=== PATIENT | female | born 1930 | race Caucasian/White ===

== ENCOUNTER 2017-05-31 06:24 | Inpatient (IN) | payer MEDICARE ==
[~2017-05-31] VITALS: Ht 162.6 cm; Wt 54.4 kg
--- NOTE | 2017-05-31 06:24 | NUR ---
PT TO ER BB RA FROM HOME. PER EMS CALLED EMS DUE TO ALTERED MENTAL STATUS S/P DRINKING ALCOHOL. UPON TRIAGE PT A/OX1. NO IMMEDIATE SIGNS OF DISTRESS NOTED. PT VITAL SIGNS STABLE. PT REDIRECTABLE. PT TO ER BED, CHANGED INTO GOWN AND CONNECTED TO MONITOR. DR SALAZAR AT [facility] FOR EXAM .
[2017-05-31] MEDS ORDERED: LORAZEPAM INJ 2 MG/ML VIAL ONE ×2 (06:42→07:38)
[2017-05-31] MEDS ORDERED: LORAZEPAM INJ 2 MG/ML VIAL IV ONE ×2 (07:00→08:00)
[2017-05-31] MEDS ORDERED: IV NS 0.9% 1,000 ML BAG IV ONE (07:00)
[2017-05-31 07:08] LABS: BASOPHILS # (AUTO) 0.1 /CMM (0.0-0.2); BASOPHILS % (AUTO) 0.4 % (0.0-2.0); EOSINOPHILS # (AUTO) 0.3 /CMM (0.0-0.7); EOSINOPHILS % (AUTO) 1.8 % (0.0-6.0); HEMATOCRIT 40 % (33-45); HEMOGLOBIN 12.8 g/dL (11.5-14.8); LYMPHOCYTES # (AUTO) 0.8 /CMM (0.8-4.8); LYMPHOCYTES % (AUTO) 4.3 % (20.0-44.0); MEAN CORPUSCULAR HEMOGLOBIN 30 PG (26.0-33.0); MEAN CORPUSCULAR HGB CONC 32 g/dl (31.0-36.0); MEAN CORPUSCULAR VOLUME 92 fL (82-100); MONOCYTES % (AUTO) 5.5 % (2.0-12.0); NEUTROPHILS # (AUTO) 16.2 /CMM (1.8-8.9); RDW COEFFICIENT OF VARIATION 15.6 (11.5-15.0); RED BLOOD CELL COUNT(AUTO) 4.36 MIL/uL (4.0-5.2); WHITE BLOOD COUNT (AUTO) 18.4 K/uL (4.3-11.0)
[2017-05-31 07:14] LABS: PLATELET COUNT (AUTO) 1760 /CMM (150-450)
[2017-05-31 07:17] LABS: CALCIUM, SERUM 10.3 mg/dL (8.5-10.1); CARBON DIOXIDE 24 mmol/L (21-32); CHLORIDE 101 mmol/L (98-107); CREATININE 0.6 mg/dL (0.6-1.3); GLUCOSE 105 mg/dL (74-106); POTASSIUM 3.8 mmol/L (3.5-5.1); SODIUM SERUM 133 mmol/L (136-145); UREA NITROGEN, BLOOD 11 mg/dL (7-18)
[2017-05-31 07:23] LABS: INR 1.08 (0.87-1.13); PROTHROMBIN TIME 11.2 SECS (9.5-12.7)
[2017-05-31 07:25] LABS: TROPONIN I < 0.017 ng/mL (0.00-0.056)
[2017-05-31 07:28] LABS: ALANINE AMINOTRANSFERASE 30 U/L (12-78); ALBUMIN 3.1 g/dL (3.4-5.0); ALCOHOL, BLOOD 177 mg/dL (0-0); ALKALINE PHOSPHATASE 279 U/L (46-116); ASPARTATE AMINOTRANSFERASE 52 U/L (15-37); BILIRUBIN,TOTAL 0.3 mg/dL (0.2-1.0)
[2017-05-31 07:29] LABS: SALICYLATE 0.9 mg/dL (2.8-20.0)
[2017-05-31 07:30] LABS: ACETAMINOPHEN 0 ug/ml (10-30)
[2017-05-31 07:32] LABS: APPEARANCE,URINE CLEAR (CLEAR); BILIRUBIN,URINE NEGATIVE (NEGATIVE); BLOOD, URINE TRACE-INTA Ery/uL (NEGATIVE); COLOR,URINE YELLOW (YELLOW); KETONES,URINE NEGATIVE (NEGATIVE); LEUKOCYTE ESTERASE ,URINE NEGATIVE (NEGATIVE); NITRITE, URINE NEGATIVE (NEGATIVE); PROTEIN,URINE 1+ mg/dl (NEGATIVE); UGLUCOSE NEGATIVE (NEGATIVE); UROBILINOGEN,URINE 0.2 EU/dL (0.2)
[2017-05-31 07:33] LABS: BACTERIA,URINE 1+ /HPF (None Seen); MUCUS,URINE Few /LPF (None Seen); URINE AMORPHOUS URATE Few /HPF (None Seen); WBC,URINE 0-2 /HPF (0-3)
[2017-05-31 07:41] LABS: BAND % (MANUAL) 1 % (0.0-5.0); EOSINOPHILS % (MANUAL) 1 % (0-4); LYMPHOCYTES % (MANUAL) 8 % (16-48); MONOCYTES % (MANUAL) 6 % (0-11.0); NEUTROPHILS % (MANUAL) 84 (42-76)
--- NOTE | 2017-05-31 07:42 | NUR ---
PT IS STILL MOVING A LOT. UNABLE TO TAKE TO RADIOLOGY FOR HEAD CT SCAN. DR SALAZAR AWARE. 0.5 ATIVAN IVP GIVEN PER ERMD VERBAL ORDER.
--- NOTE | 2017-05-31 09:47 | NUR ---
called sandee, conveyor tender eta 1hr
--- NOTE | 2017-05-31 11:35 | NUR ---
REPORT GIVEN TO JERRI COBB FOR SOULEYMANE
[2017-05-31] MEDS ORDERED: HYDROCODONE/APAP 5/325MG 1 EACH TABLET PO PRN (12:30)
[2017-05-31] MEDS ORDERED: MAG HYDROX/AL HYDROX/SIMETH 30 ML UDC PO PRN (12:30)
[2017-05-31] MEDS ORDERED: ACETAMINOPHEN 325 MG TABLET PO PRN (12:30)
[2017-05-31] MEDS ORDERED: Z GUARD REMEDY 2 OZ OINT TP PRN (12:30)
[2017-05-31] MEDS ORDERED: MAGNESIUM HYDROXIDE 30 ML UDC PO PRN (12:30)
[2017-05-31] MEDS ORDERED: ONDANSETRON HCL/PF 4 MG/2 ML VIAL IVP PRN (12:30)
[2017-05-31 14:14] LABS: EOSINOPHILS # (AUTO) 0.4 /CMM (0.0-0.7); EOSINOPHILS % (AUTO) 1.9 % (0.0-6.0); HEMATOCRIT 44 % (33-45); HEMOGLOBIN 13.8 g/dL (11.5-14.8); LYMPHOCYTES # (AUTO) 1.1 /CMM (0.8-4.8); LYMPHOCYTES % (AUTO) 5.2 % (20.0-44.0); MEAN CORPUSCULAR HEMOGLOBIN 29 PG (26.0-33.0); MEAN CORPUSCULAR HGB CONC 31 g/dl (31.0-36.0); MEAN CORPUSCULAR VOLUME 92 fL (82-100); MONOCYTES # (AUTO) 0.7 /CMM (0.1-1.30); MONOCYTES % (AUTO) 3.3 % (2.0-12.0); NEUTROPHILS # (AUTO) 19.7 /CMM (1.8-8.9); NEUTROPHILS % (AUTO) 89.6 % (43.0-81.0); RDW COEFFICIENT OF VARIATION 16.5 (11.5-15.0); RED BLOOD CELL COUNT(AUTO) 4.82 MIL/uL (4.0-5.2)
[2017-05-31 14:18] LABS: LIPASE 127 U/L (73-393)
[2017-05-31 14:44] LABS: PLATELET COUNT (AUTO) 2296 /CMM (150-450)
[2017-05-31 14:56] LABS: BAND % (MANUAL) 5 % (0.0-5.0); LYMPHOCYTES % (MANUAL) 5 % (16-48); MONOCYTES % (MANUAL) 5 % (0-11.0); NEUTROPHILS % (MANUAL) 83 (42-76); REACTIVE LYMPHOCYTES 2 % (0-0)
[2017-05-31 15:00] VITALS: BP 148/90
--- NOTE | 2017-05-31 15:00 | NUR ---
MS RN: ADMITTING NOTE RECEIVED PT TRANSFERRED FROM [facility]. NOT ADMITTED INTO [facility] AND TRANSFERRED TO BE ADMITTED INTO MS. ADMITTED WITH DX OF ALTERED MENTAL STATUS/ UTI. ON 72 HOUR HOLD. DOCUMENTATIONS IN CHART. CAME FROM HOME WITH . GOT REPORT FROM REZA IN [facility]. ONLY BELONGINGS BROUGHT INCLUDE TWO RINGS. ONE YELLOW WITH ONE STONE. ONE WHITE WITH 6 STONES. TAKEN DOWN TO THE SAFE/LOCKED. PT INCONTINENT. A/OX1. CONFUSED AND ALTERED. NON COMBATIVE. COOPERATIVE. UNSTEADY WITH GAIT. L FA IV #22 HL. SITE CLEAR AND PATENT. 1:1 SITTER. BP 148/90, PULSE 96, RR18, TEMPERATURE 97.6, O2 96% ON ROOM AIR. SKIN INTACT. NO PAIN NOTED. NO DISTRESS NOTED. SLEEPING IN BED COMFORTABLY. FALL PRECAUTIONS IN PLACE. BED ALARM ON.
[2017-05-31] MEDS ORDERED: ASPIRIN 325 MG TABLET PO SCH (16:00)
[2017-05-31] MEDS: HEPARIN SODIUM, PORCINE 5000 UNITS/1 ML VIAL SQ SCH (17:40)
[2017-05-31] MEDS: ASPIRIN 325 MG TABLET PO SCH (17:41)
[2017-05-31] MEDS: IV NS 0.9% 1,000 ML IV PRN (17:41)
[2017-05-31] MEDS: CEFTRIAXONE 1 G in IV D5W 50 ML IV SCH (18:05)
--- NOTE | 2017-05-31 18:26 | NUR ---
PER . ALL OTHER BELONGINGS WHERE TAKEN HOME. ONLY BELONGINGS LEFT WHERE 2 RINGS PLACED IN SAFE.
--- NOTE | 2017-05-31 18:29 | NUR ---
MS RN: CLOSING NOTE PT A/OX1. CONFUSED. TRIES TO GET OUT OF BED. 1:1 SITTER IN ROOM. AT BEDSIDE. UES DIAPER. INCONTINENT. UNSTEADY WITH GAIT. ON CONSISTENT CARBOHYDRATE DIET. IV ON L UA #22 RUNNING NS AT 60ML/HR. SITE CLEAR AND PATENT. NO REDNESS NOTED. NO INFILTRATION NOTED. TOO ALL MEDICATIONS ON TIME. NO ADVERSE REACTIONS NOTED. NO PAIN NOTED. NO DISTRESS NOTED. COOPERATIVE AT TIMES. MOSTLY ALTERED. NEEDS TO BE REORIENTED AT ALL TIMES. BED ALARM ON. FALL PRECAUTIONS IN PLACE. RESTING COMFORTABLY IN BED. CALL LIGHT WITHIN REACH.
--- NOTE | 2017-05-31 19:45 | NUR ---
MS RN INITIAL NOTES RECEIVED PT IN BED A/O X1, CONFUSED AND ALERT. ON A 5150 HOLD, DOCUMENTS IN THE CHART. INCONTINENT WITH DIAPER. IV ACCESS IN LFA #22 HL. NO SIGNS OF SOB OR DISTRESS. BREATHING EVENLY AND UNLABORED ON RA. BED IS IN LOW AND LOCKED POSITION, SITTER AT BEDSIDE. WILL CONTINUE TO MONITOR PT.
[2017-05-31 20:00] VITALS: BP 135/80
[2017-06-01 06:47] LABS: CALCIUM, SERUM 9.8 mg/dL (8.5-10.1); CARBON DIOXIDE 25 mmol/L (21-32); CHLORIDE 108 mmol/L (98-107); CREATININE 0.5 mg/dL (0.6-1.3); GLUCOSE 91 mg/dL (74-106); MAGNESIUM 1.5 mg/dL (1.8-2.4); PHOSPHORUS 2.9 mg/dL (2.5-4.9); POTASSIUM 4.2 mmol/L (3.5-5.1); SODIUM SERUM 141 mmol/L (136-145); UREA NITROGEN, BLOOD 11 mg/dL (7-18)
[2017-06-01 06:48] LABS: CHOLESTEROL 144 mg/dL (<200); HDL CHOLESTEROL 56 mg/dL (40-60); LDL 73 mg/dL (0-99); THYROID STIMULATING HORMONE 2.358 uIU/mL (0.358-3.74); TRIGLYCERIDES 63 mg/dL (30-150)
[2017-06-01 06:54] LABS: BASOPHILS % (AUTO) 0.3 % (0.0-2.0); EOSINOPHILS # (AUTO) 0.2 /CMM (0.0-0.7); EOSINOPHILS % (AUTO) 2.1 % (0.0-6.0); HEMATOCRIT 38 % (33-45); HEMOGLOBIN 12.6 g/dL (11.5-14.8); LYMPHOCYTES # (AUTO) 0.8 /CMM (0.8-4.8); LYMPHOCYTES % (AUTO) 6.6 % (20.0-44.0); MEAN CORPUSCULAR HEMOGLOBIN 30 PG (26.0-33.0); MEAN CORPUSCULAR HGB CONC 33 g/dl (31.0-36.0); MEAN CORPUSCULAR VOLUME 91 fL (82-100); MONOCYTES # (AUTO) 1.1 /CMM (0.1-1.30); MONOCYTES % (AUTO) 9.1 % (2.0-12.0); NEUTROPHILS # (AUTO) 9.5 /CMM (1.8-8.9); NEUTROPHILS % (AUTO) 81.9 % (43.0-81.0); RED BLOOD CELL COUNT(AUTO) 4.21 MIL/uL (4.0-5.2); WHITE BLOOD COUNT (AUTO) 11.6 K/uL (4.3-11.0)
[2017-06-01 07:09] LABS: PLATELET COUNT (AUTO) 1518 /CMM (150-450)
--- NOTE | 2017-06-01 07:11 | NUR ---
MS RN NOTES CRITICAL PLT VALUE OF 1518 REPORTED. LEVEL IS TRENDING DOWN
--- NOTE | 2017-06-01 07:27 | NUR ---
MS RN CLOSING NOTES PT IS IN BED RESTING. A/O X1, CONFUSED. NO SIGNS OF SOB OR DISTRESS, BREATHING EVENLY AND UNLABORED ON RA. NO ACUTE CHANGES THROUGHOUT MY SHIFT. SITTER IS AT BEDSIDE. BED IS IN LOW AND LOCKED POSITION, CALL LIGHT WITHIN REACH. WILL ENDORSE TO DAY SHIFT
--- NOTE | 2017-06-01 07:30 | NUR ---
m/s cnc maintenance technician: initial assessment received pt in bed awake, alert to name only with confusion and disorientation to time, place, and situation. pt on 5150. sitter at bedside. reality orientation provided prn. no c/o pain or any discomfort. will continue to monitor.
--- NOTE | 2017-06-01 07:45 | NUR ---
m/s executive consultant: neuro consult seen and examined by dr. echavarria at this time.
[2017-06-01 08:30] VITALS: BP 159/90
[2017-06-01] MEDS: ASPIRIN 325 MG TABLET PO SCH (08:39)
[2017-06-01] MEDS: THIAMINE HCL 100 MG TABLET PO SCH (08:39)
[2017-06-01] MEDS: HEPARIN SODIUM, PORCINE 5000 UNITS/1 ML VIAL SQ SCH ×2 (08:41→20:07)
--- NOTE | 2017-06-01 10:00 | NUR ---
m/s business services tech: notes assisted to bathroom by manager internet. reality orientation provided prn. will continue to monitor.
[2017-06-01] MEDS: Magnesium 1GM/D5W 100ML PREMIX 100 ML IV SCH ×2 (10:22→11:45)
[2017-06-01 10:33] LABS: EOSINOPHILS % (MANUAL) 1 % (0-4); LYMPHOCYTES % (MANUAL) 6 % (16-48); MONOCYTES % (MANUAL) 10 % (0-11.0); NEUTROPHILS % (MANUAL) 83 (42-76)
--- NOTE | 2017-06-01 12:00 | NUR ---
m/s knock out hand: notes lunch served. at bedside. sitter remains at bedside. instructed to call for assistance. will continue to monitor.
--- NOTE | 2017-06-01 16:00 | NUR ---
m/s strategy planning consultant: notes taken for ct abd via w/c accompanied by shahzad and sitter.
--- NOTE | 2017-06-01 16:20 | NUR ---
m/s yard coordinator: notes pt back from ct scan. no c/o pain or any discomfort. sitter remains at bedside. will continue to monitor.
[2017-06-01] MEDS: CEFTRIAXONE 1 G in IV D5W 50 ML IV SCH (16:29)
--- NOTE | 2017-06-01 17:20 | NUR ---
m/s manager of health: notes dinner served. hob elevated. sitter remains at bedside. instructed to call for assistance. will monitor.
--- NOTE | 2017-06-01 18:00 | NUR ---
m/s training and development manager: senior computer specialist consult seen by dr. garnica at this time with no new order.
--- NOTE | 2017-06-01 19:35 | NUR ---
MS RN INITIAL NOTES RECEIVED PT IN BED A/O X1, CONFUSED AND ALERT, ANXIOUS. ON A 5150 HOLD, DOCUMENTS IN THE CHART. INCONTINENT/ CONTINENT WITH DIAPER ABLE TO AMBULATE TO RESTROOM WITH ASSISTANCE. IV ACCESS IN LFA #22 HL. NO SIGNS OF SOB OR DISTRESS. BREATHING EVENLY AND UNLABORED ON RA. BED IS IN LOW AND LOCKED POSITION, SITTER AT BEDSIDE. WILL CONTINUE TO MONITOR PT.
[2017-06-01 20:00] VITALS: BP 159/100
--- NOTE | 2017-06-01 20:23 | NUR ---
Patient resides at home with the located at [address] [place] [id number]. She has hx of dementia and alcohol abuse. Per , patient becomes aggressive and agitated when under the influence of alcohol. Patient is currenty on 5150 hold for grave disability, plan to transfer [facility] when medically stable. Referral to child protective services social worker for eval and possible APS case. Addendum: 06/01/17 at 2023 by BRENDAN DENTON RN Amended: Links added.
[2017-06-01] MEDS: busPIRone 5 MG TABLET PO SCH (21:51)
--- NOTE | 2017-06-01 22:20 | NUR ---
PT BP IS ELEVATED, FLUIDS WERE HELD. WILL CONTINUE TO MONITOR PT.
--- NOTE | 2017-06-02 02:31 | NUR ---
PAGED DR. HODGSON, REGARDING BP ELEVATED BP. AWAITING CALL BACK
--- NOTE | 2017-06-02 02:45 | NUR ---
DR. HODGSON ORDERED METOPROLOL 25 MG BID, FIRST DOSE TO BE GIVEN NOW
[2017-06-02] MEDS ORDERED: METOPROLOL TARTRATE 25 MG TABLET ONE (02:50)
[2017-06-02] MEDS: METOPROLOL TARTRATE 25 MG TABLET PO SCH ×3 (02:53→21:00)
--- NOTE | 2017-06-02 06:30 | NUR ---
SPOKE WITH DR HODGSON REGARDING PT BP. DESPITE METOPROLOL BP IS 179/109. HYDRALAZINE 10 MG IV Q6H PRN WAS ORDERED. PT PLACED ON TELE MONITOR PRIOR TO FIRST DOSE BEING GIVEN.
[2017-06-02] MEDS ORDERED: hydrALAZINE HCL IV 20 MG VIAL ONE (06:36)
[2017-06-02] MEDS ORDERED: hydrALAZINE HCL IV 20 MG VIAL IV PRN (07:00)
--- NOTE | 2017-06-02 07:30 | NUR ---
MS JERRI AM NOTES RECEIVED PT IN BED A/O X1, CONFUSED AND ALERT, ANXIOUS. ON A 5150 HOLD EXP 06/03/17, SITTER AT BEDSIDE, NOT IN ANY DISTRESS, DENIES ANY PAIN OR DISCOMFORT, IV ACCESS IN LFA #22 HL, FLUSHES WELL, SITE CLEAR, INCONTINENT/ CONTINENT WITH DIAPER ABLE TO AMBULATE TO RESTROOM WITH ASSISTANCE. BED IS IN LOW AND LOCKED POSITION, CALL LIGHT WITHIN REACH, WILL CONTINUE TO MONITOR PT.
--- NOTE | 2017-06-02 07:33 | NUR ---
MS RN CLOSING NOTES PT IS IN BED RESTING, CONFUSED BUT OTHERWISE PLEASANT. NO SIGNS OF SOB OR DISTRESS. BREATHING EVENLY AND UNLABORED ON RA. SITTER 1:1 AT BEDSIDE. ON TELE MONITOR FOR HYDRALAZINE. DENIES PAIN. BED IS IN LOW AND LOCKED POSITION. WILL ENDORSE TO DAY SHIFT
[2017-06-02 07:38] LABS: BASOPHILS % (AUTO) 0.2 % (0.0-2.0); EOSINOPHILS # (AUTO) 0.3 /CMM (0.0-0.7); EOSINOPHILS % (AUTO) 2.9 % (0.0-6.0); HEMATOCRIT 41 % (33-45); HEMOGLOBIN 13.1 g/dL (11.5-14.8); LYMPHOCYTES # (AUTO) 0.7 /CMM (0.8-4.8); LYMPHOCYTES % (AUTO) 5.8 % (20.0-44.0); MEAN CORPUSCULAR HEMOGLOBIN 29 PG (26.0-33.0); MEAN CORPUSCULAR HGB CONC 32 g/dl (31.0-36.0); MEAN CORPUSCULAR VOLUME 92 fL (82-100); MONOCYTES # (AUTO) 0.9 /CMM (0.1-1.30); MONOCYTES % (AUTO) 7.8 % (2.0-12.0); NEUTROPHILS # (AUTO) 9.5 /CMM (1.8-8.9); NEUTROPHILS % (AUTO) 83.3 % (43.0-81.0); RDW COEFFICIENT OF VARIATION 15.9 (11.5-15.0); RED BLOOD CELL COUNT(AUTO) 4.48 MIL/uL (4.0-5.2); WHITE BLOOD COUNT (AUTO) 11.4 K/uL (4.3-11.0)
[2017-06-02 07:44] LABS: PLATELET COUNT (AUTO) 1655 /CMM (150-450)
--- NOTE | 2017-06-02 07:45 | NUR ---
MS RN NOTES LAB REPORT: CRITICAL VALUE HIGH PLATELET 1,655. INFORMED.
[2017-06-02 08:00] VITALS: BP 147/86
[2017-06-02] MEDS: busPIRone 5 MG TABLET PO SCH ×2 (09:07→21:00)
[2017-06-02] MEDS: THIAMINE HCL 100 MG TABLET PO SCH (09:07)
[2017-06-02] MEDS: ASPIRIN 325 MG TABLET PO SCH (09:07)
[2017-06-02] MEDS: HEPARIN SODIUM, PORCINE 5000 UNITS/1 ML VIAL SQ SCH ×2 (09:09→21:01)
--- NOTE | 2017-06-02 09:30 | NUR ---
MS RN NOTES DUE MEDS GIVEN.
--- NOTE | 2017-06-02 10:58 | NUR ---
Social service consult requested by case checker Missy for grave disability. Pt. is a 86 year old female who was admitted to [facility] for [facility] disability. GLORIA met with pt. and her Trevon bedside. Pt. is alert and oriented x1. Pt. has dementia and is on a 5150 hold for grave disability. Pt. has a sitter bedside. Pt lives with her Trevon in a house located at [address] [place] [address] in [place]. Pt's emergency contact is her Trevon . Pt. and her have a cat named Veruta. Pt. needs assistance withi her ADL's and walks with an unsteady gait. Pt's appeared disheveled and smelled of urine. According to charge master coordinator Bahman, pt. did not eat her food so her ate it. GLORIA inquired with how do they get their meals at home. Trevon informed SW that they get it from the restaurants. Pt. and her do not drive. Trevon informed SW that their neighbors take them to their doctor appointments. Pt. receives $2000 in SSI and pt's receives $600 in SSI per month. Both and pt. have no other family supports. GLORIA is concerned about both pt. and her living conditions since they both appear to be gravely disabled. GLORIA filed APS report for grave disability (APS Intake ID [id number]) so that APS can follow up with pt. and her at home and assess the living situation.
[2017-06-02] MEDS: Magnesium 1GM/D5W 100ML PREMIX 100 ML IV SCH ×2 (11:24→12:27)
--- NOTE | 2017-06-02 11:24 | NUR ---
MS RN NOTES MAGNESIUM BAG #1 STARTED.
[2017-06-02 12:07] LABS: LYMPHOCYTES % (MANUAL) 5 % (16-48); MONOCYTES % (MANUAL) 6 % (0-11.0); NEUTROPHILS % (MANUAL) 85 (42-76)
[2017-06-02 12:08] LABS: EOSINOPHILS % (MANUAL) 4 % (0-4)
[2017-06-02] MEDS: QUETIAPINE FUMARATE 25 MG TABLET PO SCH ×2 (12:27→16:38)
--- NOTE | 2017-06-02 12:27 | NUR ---
MS RN NOTES MAGNESIUM BAG #2 STARTED.
[2017-06-02] MEDS: DOCUSATE SODIUM 100 MG CAPSULE PO SCH (16:38)
[2017-06-02] MEDS: IV NS 0.9% 1,000 ML IV PRN (16:38)
[2017-06-02] MEDS: CEFTRIAXONE 1 G in IV D5W 50 ML IV SCH (16:39)
--- NOTE | 2017-06-02 16:39 | NUR ---
MS RN NOTES STARTED ROCEPHIN IV.
[2017-06-02 16:40] VITALS: BP 135/82
[2017-06-02 18:00] VITALS: BP 135/82
[2017-06-02] MEDS: HYDROXYUREA 500 MG CAPSULE PO SCH (18:10)
[2017-06-02] MEDS: ALLOPURINOL 100 MG TABLET PO SCH (18:11)
--- NOTE | 2017-06-02 18:27 | NUR ---
MS RN CLOSING NOTES PT IS IN BED RESTING, CONFUSED, PULLED OUT IV EARLIER, RE STARTED, AT BEDSIDE, NO SIGNS OF SOB OR DISTRESS. BREATHING EVENLY AND UNLABORED ON RA. SITTER 1:1 AT BEDSIDE. DENIES PAIN. BED IS IN LOW AND LOCKED POSITION. ALL NEEDS MET, PM CARE DONE, NO OTHER SIGNIFICANT CHANGE IN CONDITION. CALL LIGHT WITHIN REACH, WILL ENDORSE TO DAY SHIFT
[2017-06-02 20:00] VITALS: BP 122/74
--- NOTE | 2017-06-02 20:00 | NUR ---
MS SPECIAL OFFICER AUTOMAT INITIAL NOTES RECEIVED PT IN BED SLEEPING AT THIS TIME, NO SIGNS OF ANY ACUTE DISTRESS NOTED, BREATHING EVEN AND NON-LABORED, IVF STILL INFUSING AT 60ML/HR ON HER LEFT FOREARM PATENT AND INTACT. KEPT HER WARM AND COMFORTABLE AT ALL TIMES. SITTER AT THE BEDSIDE BECAUSE PT ON 5150 HOLD STARTED TODAY TO 06/16 2017. WILL CONTINUE TO MONITOR.
[2017-06-03 03:51] VITALS: BP 122/74
[2017-06-03 07:03] LABS: BASOPHILS % (AUTO) 0.1 % (0.0-2.0); EOSINOPHILS # (AUTO) 0.2 /CMM (0.0-0.7); EOSINOPHILS % (AUTO) 2.4 % (0.0-6.0); HEMATOCRIT 38 % (33-45); HEMOGLOBIN 12.4 g/dL (11.5-14.8); LYMPHOCYTES # (AUTO) 0.6 /CMM (0.8-4.8); LYMPHOCYTES % (AUTO) 6.7 % (20.0-44.0); MEAN CORPUSCULAR HEMOGLOBIN 29 PG (26.0-33.0); MEAN CORPUSCULAR HGB CONC 33 g/dl (31.0-36.0); MEAN CORPUSCULAR VOLUME 90 fL (82-100); MONOCYTES # (AUTO) 0.9 /CMM (0.1-1.30); MONOCYTES % (AUTO) 9.6 % (2.0-12.0); NEUTROPHILS # (AUTO) 7.5 /CMM (1.8-8.9); NEUTROPHILS % (AUTO) 81.2 % (43.0-81.0); RDW COEFFICIENT OF VARIATION 16.2 (11.5-15.0); WHITE BLOOD COUNT (AUTO) 9.3 K/uL (4.3-11.0)
[2017-06-03 07:18] LABS: CALCIUM, SERUM 10.1 mg/dL (8.5-10.1); CARBON DIOXIDE 25 mmol/L (21-32); CHLORIDE 108 mmol/L (98-107); CREATININE 0.7 mg/dL (0.6-1.3); GLUCOSE 106 mg/dL (74-106); MAGNESIUM 1.8 mg/dL (1.8-2.4); POTASSIUM 3.9 mmol/L (3.5-5.1); SODIUM SERUM 140 mmol/L (136-145); UREA NITROGEN, BLOOD 9 mg/dL (7-18)
[2017-06-03 07:22] LABS: PLATELET COUNT (AUTO) 1527 /CMM (150-450)
--- NOTE | 2017-06-03 07:35 | NUR ---
MS RN INITIAL NOTES RECEIVED PT IN BED AWAKE, ALERT,VERBALLY RESPONSIVE.ON ROOM AIR, NO SOB ,NO APPARENT DISTRESS NOTED.IV SITE LFA INTACT, PATENT.DENIES ANY PAIN OR DISCOMFORT AT THIS TIME. CALL LIGHT WITHIN REACH, BED IN LOWEST POSITION. WILL CONTINUE TO MONITOR ACCORDINGLY
--- NOTE | 2017-06-03 07:39 | NUR ---
SLOT MACHINE REPAIRER/CLOSING NOTES PT AWAKE AND ALERT AT THIS TIME, CONFUSION AT TIMES NEEDS RE-ORIENTATION AT TIMES. DENIES ANY PAIN OR ANY DISCOMFORT. STABLE NUVIA THE NIGHT AND SLEPT WELL. ALL DUE MEDS GIVEN . NO AGITATION NOTED. KEPT HER WARM AND COMFORTABLE AT ALL TIMES. SITTER AT THE BEDSIDE FOR SAFETY. HEPLOCK AT THIS TIME. ENDORSE TO AM NURSE FOR CONTINUITY OF CARE.
[2017-06-03 08:00] VITALS: BP 163/85
--- NOTE | 2017-06-03 08:00 | NUR ---
MS RN RECEIVED ON BED, AWAKE,FORGETFUL, NOT IN ANY FORM OF DISTRESS, RESPIRATIONS EVEN AND UNLABORED,NO SOB NOTED, LUNGS ARE CLEAR,ABDOMEN SOFT,POSITIVE BOWEL SOUNDS, DENIES PAIN AT THIS TIME, WILL MONITOR PATIENT'S CONDITION.
--- NOTE | 2017-06-03 09:00 | NUR ---
MS GUTHRIE BREAKFAST SERVED,DUE MEDS GIVEN,TOLERATED WELL.
[2017-06-03] MEDS: ALLOPURINOL 100 MG TABLET PO SCH (09:08)
[2017-06-03] MEDS: HYDROXYUREA 500 MG CAPSULE PO SCH (09:08)
[2017-06-03] MEDS: DOCUSATE SODIUM 100 MG CAPSULE PO SCH ×2 (09:08→17:23)
[2017-06-03] MEDS: THIAMINE HCL 100 MG TABLET PO SCH (09:09)
[2017-06-03] MEDS: busPIRone 5 MG TABLET PO SCH (09:09)
[2017-06-03] MEDS: QUETIAPINE FUMARATE 25 MG TABLET PO SCH ×2 (09:09→17:23)
[2017-06-03] MEDS: ASPIRIN 325 MG TABLET PO SCH (09:09)
[2017-06-03] MEDS: METOPROLOL TARTRATE 25 MG TABLET PO SCH (09:11)
[2017-06-03] MEDS: HEPARIN SODIUM, PORCINE 5000 UNITS/1 ML VIAL SQ SCH (09:13)
[2017-06-03 09:58] LABS: EOSINOPHILS % (MANUAL) 6 % (0-4); LYMPHOCYTES % (MANUAL) 4 % (16-48); MONOCYTES % (MANUAL) 7 % (0-11.0); NEUTROPHILS % (MANUAL) 83 (42-76)
[2017-06-03 10:00] VITALS: BP 148/80
[2017-06-03 16:00] VITALS: BP_SYST 127; BP_SYST 177; BP_DIAS 67; BP_DIAS 82
[2017-06-03] MEDS: CEFTRIAXONE 1 G in IV D5W 50 ML IV SCH (17:24)
--- NOTE | 2017-06-03 18:32 | NUR ---
MS RN PATIENT WILL BE GOING TO [facility] WHEN ROOM IS AVAILABLE, JOSETTE GUTHRIE WILL CALL.
== END 2017-06-03 19:54 | DRG 871 ==
LOC: ER 06:25 → GPS 11:33 → MED 14:30
PROVIDERS: ADMIT Nurse Practitioner Acute Care; ATTEND Nurse Practitioner Acute Care
DX: A41.9 Sepsis, unspecified organism (principal); G93.41 Metabolic encephalopathy; J69.0 Pneumonitis due to inhalation of food and vomit; E87.2 Acidosis; K70.10 Alcoholic hepatitis without ascites; E83.42 Hypomagnesemia; R13.10 Dysphagia, unspecified; J98.11 Atelectasis; F10.129 Alcohol abuse with intoxication, unspecified; Y90.6 Blood alcohol level of 120-199 mg/100 ml; D47.3 Essential (hemorrhagic) thrombocythemia; I70.0 Atherosclerosis of aorta; F29 Unspecified psychosis not due to a substance or known physiological condition; F03.90 Unspecified dementia, unspecified severity, without behavioral disturbance, psychotic disturbance, mood disturbance, and anxiety; F41.9 Anxiety disorder, unspecified; I10 Essential (primary) hypertension; K59.00 Constipation, unspecified; R33.9 Retention of urine, unspecified; F10.150 Alcohol abuse with alcohol-induced psychotic disorder with delusions; F01.50 Vascular dementia, unspecified severity, without behavioral disturbance, psychotic disturbance, mood disturbance, and anxiety; N28.1 Cyst of kidney, acquired; K80.20 Calculus of gallbladder without cholecystitis without obstruction
CPT/HCPCS: 36415; 70450-TC; 71010-TC; 80048-TC; 80061-TC; 80076-TC; 80305; 81000-TC; 82140-TC; 83605-TC; 83690-TC; 83735-TC; 83891; 83900; 83909; 83912; 84100-TC; 84425; 84443-TC; 84484-TC; 84550-TC; 85025-TC; 85730-TC; 87040-TC; 87081-TC; A4606; G0480; J0360; J0696; J1644; J2060; J3475; J7030; J7060; Z7610

== ENCOUNTER 2017-06-03 20:05 | Inpatient (IN) | payer MEDICARE ==
[~2017-06-03] VITALS: Ht 162.6 cm; Wt 54.4 kg
--- NOTE | 2017-06-03 19:45 | NUR ---
RECEIVED A REPORT FROM PARUL FROM [facility]. PER REPORT, PATIENT IS MEDICALLY CLEAR BY PETTY OSUNA. PER REPORT NO HOME MEDS BUT ALL MEDICATIONS WERE DISCONTINUED FROM UPSTAIRS.
[2017-06-03] MEDS ORDERED: TEMAZEPAM 7.5 MG CAPSULE PO PRN (20:30)
[2017-06-03] MEDS ORDERED: MAG HYDROX/AL HYDROX/SIMETH 30 ML UDC PO PRN (20:30)
[2017-06-03] MEDS ORDERED: MAGNESIUM HYDROXIDE 30 ML UDC PO PRN (20:30)
[2017-06-03] MEDS ORDERED: ACETAMINOPHEN 325 MG TABLET PO PRN (20:30)
[2017-06-03] MEDS ORDERED: LORAZEPAM 0.5 MG TABLET PO PRN (20:30)
--- NOTE | 2017-06-03 20:30 | NUR ---
ADMITTED AN 86 Y/O WHITE FEMALE, ON 5250 HOLD GD. BASED ON HOLD PATIENT IS STILL PSYCHOSIS, AGITATED, MOOD SWINGS, CONFUSED AND UNABLE TO CARE FOR SELF. PATIENT ADMITTING DX. PSYCHOSIS AND MEDICAL DX. ALCOHOL INTOXIFICATION. UPON FACE TO FACE EVALUATION, PATIENT APPEARED CONFUSED, DISORIENTED, DISORGANIZED, TALKING TO SELF, RESPONDING TO INTERNAL STIMULI AND UNABLE TO CARE FOR SELF. NO SOB, NO ACUTE DISTRESS, BREATHING EVEN AND UNLABORED, NO S/S OF PAIN AND DISCOMFORT, SEVERE LOWER EXTREMITIES WEAKNESS AND UNSTEADY GAIT. PATIENT UNABLE TO SIGN PAPERWORKS, ALL BELONGINGS AND CONTRABAND INSPECTED AND PLACED TO SAFE. NOTIFIED DR. BARROSO WITH ORDER OF 1:1. NOTIFIED INTERACTIVE MEDIA MARKETING DIRECTOR. PATIENT SEEN FROM TIME TO TIME. SAFETY PRECAUTIONS OBSERVED. ATTEMPTED TO NOTIFY BUT THE NUMBER GIVEN IS DISCONNECTED. WILL CONTINUE TO FOLLOW UP. KEPT CLEAN, DRY AND COMFORTABLE, WILL CONTINUE TO MONITOR [id number] FOR SAFETY
[2017-06-04 01:00] VITALS: BP 130/70
[2017-06-04 07:49] LABS: CHOLESTEROL 144 mg/dL (<200); HDL CHOLESTEROL 61 mg/dL (40-60); LDL 68 mg/dL (0-99); TRIGLYCERIDES 57 mg/dL (30-150)
[2017-06-04 08:00] VITALS: BP 114/69
[2017-06-04] MEDS: LEVOFLOXACIN (500MG) 500 MG TABLET PO SCH (08:48)
[2017-06-04] MEDS: ASPIRIN 81 MG TAB.CHEW PO SCH (08:49)
[2017-06-04] MEDS: ALLOPURINOL 100 MG TABLET PO SCH (08:49)
[2017-06-04] MEDS: HYDROXYUREA 500 MG CAPSULE PO SCH (08:52)
--- NOTE | 2017-06-04 09:51 | NUR ---
DR. BARROSO CAME AND ORDERED 1:1 FOR PT. IS HIGH FALL RISK AND CLIMBING ON BED.
[2017-06-04] MEDS: QUETIAPINE FUMARATE 25 MG TABLET PO SCH ×2 (11:30→17:00)
[2017-06-04] MEDS ORDERED: QUETIAPINE FUMARATE 25 MG TABLET PO SCH (12:30)
--- NOTE | 2017-06-04 13:11 | NUR ---
RN-NOTES DR. BARROSO ORDERED EKG FOR THE PATIENT,NOTED AND CARRIED OUT.
--- NOTE | 2017-06-04 15:01 | NUR ---
DR. BARROSO MADE AWARE OF THE EKG RESULT AND NO NEW ORDER.
[2017-06-04 15:46] VITALS: BP 150/90
[2017-06-04] MEDS: busPIRone 5 MG TABLET PO SCH (17:20)
[2017-06-04 20:00] VITALS: BP 136/78
[2017-06-05 08:07] VITALS: BP 164/96
[2017-06-05 08:14] LABS: CALCIUM, SERUM 10.2 mg/dL (8.5-10.1); CARBON DIOXIDE 25 mmol/L (21-32); CHLORIDE 106 mmol/L (98-107); CREATININE 0.5 mg/dL (0.6-1.3); GLUCOSE 91 mg/dL (74-106); MAGNESIUM 1.6 mg/dL (1.8-2.4); PHOSPHORUS 3.1 mg/dL (2.5-4.9); POTASSIUM 4.2 mmol/L (3.5-5.1); SODIUM SERUM 140 mmol/L (136-145); UREA NITROGEN, BLOOD 12 mg/dL (7-18)
[2017-06-05 08:25] LABS: BASOPHILS % (AUTO) 0.1 % (0.0-2.0); EOSINOPHILS # (AUTO) 0.1 /CMM (0.0-0.7); EOSINOPHILS % (AUTO) 1.3 % (0.0-6.0); HEMATOCRIT 37 % (33-45); HEMOGLOBIN 11.8 g/dL (11.5-14.8); LYMPHOCYTES # (AUTO) 0.4 /CMM (0.8-4.8); LYMPHOCYTES % (AUTO) 4.8 % (20.0-44.0); MEAN CORPUSCULAR HEMOGLOBIN 30 PG (26.0-33.0); MEAN CORPUSCULAR HGB CONC 32 g/dl (31.0-36.0); MEAN CORPUSCULAR VOLUME 93 fL (82-100); MONOCYTES # (AUTO) 0.3 /CMM (0.1-1.30); MONOCYTES % (AUTO) 3.6 % (2.0-12.0); NEUTROPHILS # (AUTO) 7.3 /CMM (1.8-8.9); NEUTROPHILS % (AUTO) 90.2 % (43.0-81.0); RDW COEFFICIENT OF VARIATION 16.5 (11.5-15.0); RED BLOOD CELL COUNT(AUTO) 3.99 MIL/uL (4.0-5.2); WHITE BLOOD COUNT (AUTO) 8.1 K/uL (4.3-11.0)
[2017-06-05 08:30] LABS: PLATELET COUNT (AUTO) 1284 /CMM (150-450)
[2017-06-05] MEDS: LEVOFLOXACIN (500MG) 500 MG TABLET PO SCH (09:27)
[2017-06-05] MEDS: ASPIRIN 81 MG TAB.CHEW PO SCH (09:27)
[2017-06-05] MEDS: ALLOPURINOL 100 MG TABLET PO SCH (09:27)
[2017-06-05] MEDS: HYDROXYUREA 500 MG CAPSULE PO SCH (09:27)
[2017-06-05] MEDS: busPIRone 5 MG TABLET PO SCH ×2 (09:27→17:23)
--- NOTE | 2017-06-05 11:30 | NUR ---
RN-CO: Patient was seen and examined by Dr Posadas.
[2017-06-05] MEDS ORDERED: MAGNESIUM OXIDE 400 MG TABLET PO ONE (12:00)
[2017-06-05] MEDS: QUETIAPINE FUMARATE 25 MG TABLET PO SCH ×3 (12:20→17:24)
[2017-06-05 13:09] LABS: EOSINOPHILS % (MANUAL) 1 % (0-4); LYMPHOCYTES % (MANUAL) 9 % (16-48); MONOCYTES % (MANUAL) 3 % (0-11.0); NEUTROPHILS % (MANUAL) 87 (42-76)
--- NOTE | 2017-06-05 15:07 | NUR ---
Initial Discharge Note: Patient lives with her in a house at [address] [place] [address] and wishes to return upon discharge. GLORIA spoke with pt's Trevon Luke [phone] / [phone], in person during visiting hours. Trevon stated that he would like home-health services arranged for patient. Please note that pt's also appeared to be unkempt. GLORIA will consult with MD and will work to arrange safe and proper discharge for patient. Please note that there is an open APS report, filed by GLORIA Bajwa while patient was on medical floor being transfer to [facility]. (APS Intake ID [id number])
[2017-06-05 16:00] VITALS: BP 120/65
[2017-06-05 20:11] VITALS: BP 123/84
[2017-06-06 07:30] LABS: BASOPHILS % (AUTO) 0.5 % (0.0-2.0); EOSINOPHILS # (AUTO) 0.2 /CMM (0.0-0.7); EOSINOPHILS % (AUTO) 3.2 % (0.0-6.0); HEMATOCRIT 37 % (33-45); HEMOGLOBIN 11.6 g/dL (11.5-14.8); LYMPHOCYTES # (AUTO) 0.5 /CMM (0.8-4.8); LYMPHOCYTES % (AUTO) 7.2 % (20.0-44.0); MEAN CORPUSCULAR HEMOGLOBIN 29 PG (26.0-33.0); MEAN CORPUSCULAR HGB CONC 31 g/dl (31.0-36.0); MEAN CORPUSCULAR VOLUME 93 fL (82-100); MONOCYTES # (AUTO) 0.2 /CMM (0.1-1.30); MONOCYTES % (AUTO) 3.3 % (2.0-12.0); NEUTROPHILS # (AUTO) 6.1 /CMM (1.8-8.9); NEUTROPHILS % (AUTO) 85.8 % (43.0-81.0); RDW COEFFICIENT OF VARIATION 16.5 (11.5-15.0); RED BLOOD CELL COUNT(AUTO) 4.02 MIL/uL (4.0-5.2); WHITE BLOOD COUNT (AUTO) 7.1 K/uL (4.3-11.0)
[2017-06-06 07:31] LABS: PLATELET COUNT (AUTO) 1458 /CMM (150-450); URIC ACID 3.1 mg/dL (2.6-7.2)
[2017-06-06 07:36] LABS: ALANINE AMINOTRANSFERASE 28 U/L (12-78); ALBUMIN 2.7 g/dL (3.4-5.0); ALKALINE PHOSPHATASE 210 U/L (46-116); ASPARTATE AMINOTRANSFERASE 37 U/L (15-37); BILIRUBIN,TOTAL 0.6 mg/dL (0.2-1.0); CALCIUM, SERUM 10.2 mg/dL (8.5-10.1); CARBON DIOXIDE 26 mmol/L (21-32); CHLORIDE 106 mmol/L (98-107); CREATININE 0.6 mg/dL (0.6-1.3); GLUCOSE 87 mg/dL (74-106); POTASSIUM 4.3 mmol/L (3.5-5.1); SODIUM SERUM 140 mmol/L (136-145); TOTAL PROTEIN, SERUM 6.2 g/dL (6.4-8.2); UREA NITROGEN, BLOOD 15 mg/dL (7-18)
[2017-06-06 08:00] VITALS: BP 143/81
[2017-06-06] MEDS: busPIRone 5 MG TABLET PO SCH ×2 (08:27→16:34)
[2017-06-06] MEDS: ASPIRIN 81 MG TAB.CHEW PO SCH (08:27)
[2017-06-06] MEDS: ALLOPURINOL 100 MG TABLET PO SCH (08:27)
[2017-06-06] MEDS: QUETIAPINE FUMARATE 25 MG TABLET PO SCH ×2 (08:27→16:34)
[2017-06-06] MEDS: HYDROXYUREA 500 MG CAPSULE PO SCH (08:27)
[2017-06-06] MEDS: LEVOFLOXACIN (500MG) 500 MG TABLET PO SCH (08:27)
[2017-06-06 10:32] LABS: BAND % (MANUAL) 1 % (0.0-5.0); EOSINOPHILS % (MANUAL) 3 % (0-4); LYMPHOCYTES % (MANUAL) 9 % (16-48); MONOCYTES % (MANUAL) 4 % (0-11.0); NEUTROPHILS % (MANUAL) 83 (42-76)
[2017-06-06 16:00] VITALS: BP 115/82
[2017-06-06 20:00] VITALS: BP 150/78
--- NOTE | 2017-06-07 06:53 | NUR ---
ms/rn notes Patient in bed, No significant changes noted. With 1:1 sitter at bedside.Denies pain or discomfort the entire shift. Remain in stable condition. All needs attended. will continue plan of care.
[2017-06-07] MEDS: ASPIRIN 81 MG TAB.CHEW PO SCH (08:32)
[2017-06-07] MEDS: LEVOFLOXACIN (500MG) 500 MG TABLET PO SCH (08:32)
[2017-06-07] MEDS: ALLOPURINOL 100 MG TABLET PO SCH (08:32)
[2017-06-07] MEDS: busPIRone 5 MG TABLET PO SCH ×2 (08:32→16:07)
[2017-06-07] MEDS: QUETIAPINE FUMARATE 25 MG TABLET PO SCH ×2 (08:32→16:07)
[2017-06-07] MEDS: HYDROXYUREA 500 MG CAPSULE PO SCH (08:37)
[2017-06-07 08:45] VITALS: BP 152/90
[2017-06-07 16:37] VITALS: BP 115/72
--- NOTE | 2017-06-07 17:30 | NUR ---
PER MD RILEY ORDER TO GET CONSENT FROM NIECE FOR POSSIBLE BONE MARROW BIOPSY. NIECE CONSENT WANTED BECAUSE SPEAKING WITH AND PATIENT. MD RILEY FELT THAT THEY DID NOT UNDERSTAND PROCEDURE WELL. NIECE DID NOT VISIT FAMILY TODAY. NO NUMBER IN FILE. FOLLOW UP.
[2017-06-07 20:46] VITALS: BP 126/84
[2017-06-08 06:26] LABS: EOSINOPHILS # (AUTO) 0.1 /CMM (0.0-0.7); HEMATOCRIT 37 % (33-45); HEMOGLOBIN 11.7 g/dL (11.5-14.8); LYMPHOCYTES # (AUTO) 0.5 /CMM (0.8-4.8); LYMPHOCYTES % (AUTO) 11.3 % (20.0-44.0); MEAN CORPUSCULAR HEMOGLOBIN 30 PG (26.0-33.0); MEAN CORPUSCULAR HGB CONC 32 g/dl (31.0-36.0); MEAN CORPUSCULAR VOLUME 92 fL (82-100); MONOCYTES # (AUTO) 0.2 /CMM (0.1-1.30); MONOCYTES % (AUTO) 3.6 % (2.0-12.0); NEUTROPHILS # (AUTO) 3.8 /CMM (1.8-8.9); NEUTROPHILS % (AUTO) 82.1 % (43.0-81.0); RDW COEFFICIENT OF VARIATION 15.9 (11.5-15.0); RED BLOOD CELL COUNT(AUTO) 3.96 MIL/uL (4.0-5.2); WHITE BLOOD COUNT (AUTO) 4.6 K/uL (4.3-11.0)
[2017-06-08 06:47] LABS: CALCIUM, SERUM 9.9 mg/dL (8.5-10.1); CARBON DIOXIDE 25 mmol/L (21-32); CHLORIDE 107 mmol/L (98-107); CREATININE 0.6 mg/dL (0.6-1.3); GLUCOSE 91 mg/dL (74-106); PLATELET COUNT (AUTO) 1151 /CMM (150-450); POTASSIUM 4.2 mmol/L (3.5-5.1); SODIUM SERUM 140 mmol/L (136-145); UREA NITROGEN, BLOOD 19 mg/dL (7-18)
[2017-06-08 08:00] VITALS: BP 142/85
[2017-06-08] MEDS: ALLOPURINOL 100 MG TABLET PO SCH (08:37)
[2017-06-08] MEDS: busPIRone 5 MG TABLET PO SCH ×2 (08:37→16:52)
[2017-06-08] MEDS: HYDROXYUREA 500 MG CAPSULE PO SCH (08:37)
[2017-06-08] MEDS: ASPIRIN 81 MG TAB.CHEW PO SCH (08:37)
[2017-06-08] MEDS: LEVOFLOXACIN (500MG) 500 MG TABLET PO SCH (08:37)
[2017-06-08] MEDS: QUETIAPINE FUMARATE 25 MG TABLET PO SCH ×2 (09:40→16:52)
[2017-06-08 09:50] LABS: BAND % (MANUAL) 1 % (0.0-5.0); EOSINOPHILS % (MANUAL) 3 % (0-4); LYMPHOCYTES % (MANUAL) 4 % (16-48); MONOCYTES % (MANUAL) 2 % (0-11.0); NEUTROPHILS % (MANUAL) 90 (42-76)
--- NOTE | 2017-06-08 10:44 | NUR ---
Family Update: GLORIA called and spoke with pt's niece, Aida Luke. Aida stated that pt's cannot care for patient, as he can barely take care of himself. Aida stated that the family is hoping to find placement for pt. GLORIA stated that she will follow up with patient and with her to discuss this further and will attempt to secure placement for patient. Addendum: 06/08/17 at 1213 by SALOMON CASTRO Aida Luke's phone number is [phone]
[2017-06-08 16:00] VITALS: BP 136/79
--- NOTE | 2017-06-08 17:54 | NUR ---
[facility]/RN LEFT MESSAGE FOR ROSY HERNANDEZ REGARDING CONSENT FOR BONE MARROW BIOPSY, AWAITING CALL BACK
[2017-06-08 19:54] VITALS: BP 142/94
[2017-06-09 08:14] VITALS: BP 146/96
[2017-06-09] MEDS: LEVOFLOXACIN (500MG) 500 MG TABLET PO SCH (08:23)
[2017-06-09] MEDS: ASPIRIN 81 MG TAB.CHEW PO SCH (08:23)
[2017-06-09] MEDS: ALLOPURINOL 100 MG TABLET PO SCH (08:24)
[2017-06-09] MEDS: QUETIAPINE FUMARATE 25 MG TABLET PO SCH ×2 (08:24→16:13)
[2017-06-09] MEDS: busPIRone 5 MG TABLET PO SCH ×2 (08:25→16:12)
[2017-06-09] MEDS: HYDROXYUREA 500 MG CAPSULE PO SCH (08:26)
[2017-06-09 16:00] VITALS: BP 99/67
[2017-06-09 20:56] VITALS: BP 96/54
[2017-06-10 08:00] VITALS: BP 122/69
[2017-06-10] MEDS: ASPIRIN 81 MG TAB.CHEW PO SCH (09:26)
[2017-06-10] MEDS: HYDROXYUREA 500 MG CAPSULE PO SCH (09:26)
[2017-06-10] MEDS: LEVOFLOXACIN (500MG) 500 MG TABLET PO SCH (09:26)
[2017-06-10] MEDS: QUETIAPINE FUMARATE 25 MG TABLET PO SCH ×2 (09:27→16:50)
[2017-06-10] MEDS: ALLOPURINOL 100 MG TABLET PO SCH (09:27)
[2017-06-10] MEDS: busPIRone 5 MG TABLET PO SCH ×2 (09:27→16:50)
--- NOTE | 2017-06-10 09:37 | NUR ---
Discharge Planning: GLORIA faxed an inquiry to Meng in admissions at [facility] [address] [place] [address] , fax number: [phone]
--- NOTE | 2017-06-10 09:37 | NUR ---
Discharge Planning: SW faxed an inquiry to October in Admissions at [facility] [address] [facility] / fax number [phone]. SW to follow up.
--- NOTE | 2017-06-10 12:47 | NUR ---
Discharge Planning: SW was notified by October in Admissions at [facility] [address] [facility] / fax number [phone] that patient was accepted into the facility. SW to notify family and proceed with discharge planning.
--- NOTE | 2017-06-10 12:56 | NUR ---
Discharge Planning: At the request of family, GLORIA faxed an inquiry to [facility] Address: [address] , [place] [address] / fax number [phone]
--- NOTE | 2017-06-10 15:41 | NUR ---
Discharge Planning: GLORIA heard from Vicki at [facility] Address: [address] , [place] [address] / fax number [phone] who stated that patient had been accepted into their facility. Family was notified of this. Please note that patient might be moved to medical floor and that SW will follow up with facility and with family tomorrow morning .
[2017-06-10 16:00] VITALS: BP 92/59
[2017-06-10 20:00] VITALS: BP 95/63
[2017-06-10 20:51] VITALS: BP 95/63
[2017-06-11 07:23] LABS: INR 1.01 (0.87-1.13); PROTHROMBIN TIME 10.5 SECS (9.5-12.7)
[2017-06-11 07:26] LABS: EOSINOPHILS # (AUTO) 0.1 /CMM (0.0-0.7); EOSINOPHILS % (AUTO) 3.9 % (0.0-6.0); HEMATOCRIT 36 % (33-45); HEMOGLOBIN 11.7 g/dL (11.5-14.8); LYMPHOCYTES # (AUTO) 0.3 /CMM (0.8-4.8); LYMPHOCYTES % (AUTO) 14.5 % (20.0-44.0); MEAN CORPUSCULAR HEMOGLOBIN 30 PG (26.0-33.0); MEAN CORPUSCULAR HGB CONC 33 g/dl (31.0-36.0); MEAN CORPUSCULAR VOLUME 93 fL (82-100); MONOCYTES # (AUTO) 0.1 /CMM (0.1-1.30); MONOCYTES % (AUTO) 4.3 % (2.0-12.0); NEUTROPHILS # (AUTO) 1.5 /CMM (1.8-8.9); NEUTROPHILS % (AUTO) 75.3 % (43.0-81.0); PLATELET COUNT (AUTO) 718 /CMM (150-450); RDW COEFFICIENT OF VARIATION 15.8 (11.5-15.0); RED BLOOD CELL COUNT(AUTO) 3.88 MIL/uL (4.0-5.2)
[2017-06-11 07:37] LABS: ALANINE AMINOTRANSFERASE 30 U/L (12-78); ALKALINE PHOSPHATASE 216 U/L (46-116); ASPARTATE AMINOTRANSFERASE 36 U/L (15-37); BILIRUBIN,TOTAL 0.5 mg/dL (0.2-1.0); CALCIUM, SERUM 10.1 mg/dL (8.5-10.1); CARBON DIOXIDE 26 mmol/L (21-32); CHLORIDE 103 mmol/L (98-107); CREATININE 0.8 mg/dL (0.6-1.3); GLUCOSE 96 mg/dL (74-106); POTASSIUM 4.4 mmol/L (3.5-5.1); SODIUM SERUM 136 mmol/L (136-145); TOTAL PROTEIN, SERUM 6.7 g/dL (6.4-8.2); UREA NITROGEN, BLOOD 27 mg/dL (7-18)
[2017-06-11] MEDS: QUETIAPINE FUMARATE 25 MG TABLET PO SCH ×2 (08:18→16:59)
[2017-06-11] MEDS: ASPIRIN 81 MG TAB.CHEW PO SCH (08:18)
[2017-06-11] MEDS: HYDROXYUREA 500 MG CAPSULE PO SCH (08:18)
[2017-06-11] MEDS: ALLOPURINOL 100 MG TABLET PO SCH (08:19)
[2017-06-11] MEDS: busPIRone 5 MG TABLET PO SCH ×2 (08:19→16:59)
[2017-06-11 08:57] VITALS: BP 132/77
[2017-06-11] MEDS: LEVOFLOXACIN (500MG) 500 MG TABLET PO SCH (09:01)
[2017-06-11 09:30] LABS: EOSINOPHILS % (MANUAL) 2 % (0-4); LYMPHOCYTES % (MANUAL) 14 % (16-48); MONOCYTES % (MANUAL) 4 % (0-11.0); NEUTROPHILS % (MANUAL) 80 (42-76)
[2017-06-11 16:00] VITALS: BP 116/69
--- NOTE | 2017-06-11 16:02 | NUR ---
GLORIA received a call from APS manager social work Carla inquiring about the APS report SW had filed on pt's for safety concerns. Carla informed SW that he is currently outside the pt's house, however pt's is not home. GLORIA Aguirre left his card on the front door. APS manager social work Carla would like for pt's GLORIA Hagen to contact him once a SNF placement has been arranged. GLORIA Hagen was notified.
[2017-06-11 20:00] VITALS: BP 112/65
[2017-06-12 06:29] LABS: EOSINOPHILS # (AUTO) 0.1 /CMM (0.0-0.7); EOSINOPHILS % (AUTO) 5.1 % (0.0-6.0); HEMATOCRIT 33 % (33-45); HEMOGLOBIN 11.1 g/dL (11.5-14.8); LYMPHOCYTES # (AUTO) 0.5 /CMM (0.8-4.8); LYMPHOCYTES % (AUTO) 34.1 % (20.0-44.0); MEAN CORPUSCULAR HEMOGLOBIN 31 PG (26.0-33.0); MEAN CORPUSCULAR HGB CONC 33 g/dl (31.0-36.0); MEAN CORPUSCULAR VOLUME 92 fL (82-100); MONOCYTES # (AUTO) 0.1 /CMM (0.1-1.30); MONOCYTES % (AUTO) 6.6 % (2.0-12.0); NEUTROPHILS # (AUTO) 0.8 /CMM (1.8-8.9); NEUTROPHILS % (AUTO) 54.2 % (43.0-81.0); PLATELET COUNT (AUTO) 568 /CMM (150-450); RDW COEFFICIENT OF VARIATION 15.9 (11.5-15.0)
[2017-06-12 06:46] LABS: INR 0.98 (0.87-1.13); PROTHROMBIN TIME 10.2 SECS (9.5-12.7)
[2017-06-12 07:00] LABS: WHITE BLOOD COUNT (AUTO) 1.5 K/uL (4.3-11.0)
[2017-06-12 07:20] LABS: ALANINE AMINOTRANSFERASE 25 U/L (12-78); ALBUMIN 2.9 g/dL (3.4-5.0); ALKALINE PHOSPHATASE 198 U/L (46-116); ASPARTATE AMINOTRANSFERASE 30 U/L (15-37); BILIRUBIN,TOTAL 0.4 mg/dL (0.2-1.0); CALCIUM, SERUM 10.3 mg/dL (8.5-10.1); CARBON DIOXIDE 23 mmol/L (21-32); CHLORIDE 105 mmol/L (98-107); CREATININE 0.6 mg/dL (0.6-1.3); GLUCOSE 91 mg/dL (74-106); POTASSIUM 5.1 mmol/L (3.5-5.1); SODIUM SERUM 137 mmol/L (136-145); UREA NITROGEN, BLOOD 22 mg/dL (7-18)
[2017-06-12 08:25] VITALS: BP 142/76
[2017-06-12] MEDS: LEVOFLOXACIN (500MG) 500 MG TABLET PO SCH (08:29)
[2017-06-12] MEDS: ASPIRIN 81 MG TAB.CHEW PO SCH (08:29)
[2017-06-12] MEDS: busPIRone 5 MG TABLET PO SCH (08:30)
[2017-06-12] MEDS: QUETIAPINE FUMARATE 25 MG TABLET PO SCH (08:30)
[2017-06-12] MEDS: ALLOPURINOL 100 MG TABLET PO SCH (08:31)
[2017-06-12 10:04] LABS: EOSINOPHILS % (MANUAL) 3 % (0-4); LYMPHOCYTES % (MANUAL) 31 % (16-48); MONOCYTES % (MANUAL) 8 % (0-11.0); NEUTROPHILS % (MANUAL) 58 (42-76)
--- NOTE | 2017-06-12 10:50 | NUR ---
DR. RILEY CAME AND SEE THE PT. AND MADE AWARE ABOUT THE LAB RESULT AND RECOMMENDED TO TRANSFER TO MED- SURG AND SHE CONTACTED THE WHOLESALE PARTS SALESPERSON ADÁN PARKER. ADÁN PARKER ORDERED TO TRANSFER PT. TO MED-SURG. DR. ANDREA MADE AWARE AND ORDERED TO D/C PT. TO MED-SURG AND CONTINUE ON HOLD AND CONTINUE SAME MEDS INCLUDING PRN.
--- NOTE | 2017-06-12 11:00 | NUR ---
RN NOTES GAVE REPORT TO [facility] JERRI KULKARNI. WBC 1.5 NEEDS TO BE PLACED IN NEUTROPENIC PRECAUTIONS. PEARL NEEDS MET ALL MEDS GIVEN. PATIENT STILL ON HOLD UNTIL 06/16/17. AOX1. FORGETFUL. PATIENT IN STABLE CONDITION. NO ACUTE DISTRESS. ALL NEEDS MET. ALL MEDS GIVEN APPROPRIATE. RESPIRATIONS EVEN AND UNLABORED. DENIES PAIN. DENIES SOB OR CP. WILL TRANSFER TO [facility] FOR CONTINUATION OF CARE WITH SITTER.
--- NOTE | 2017-06-12 11:10 | NUR ---
CALLED THE [facility] AT [phone] AND THE NUMBER IS DISCONNECTED AND TRIED TO CALL OTHER NUMBER [phone] AND IT'S A WRONG NUMBER.
[2017-06-12] MEDS ORDERED: BUSP5TAB3 PO (12:17)
[2017-06-12] MEDS ORDERED: ALLO100T PO (12:17)
[2017-06-12] MEDS ORDERED: MAG30ORA PO (12:17)
[2017-06-12] MEDS ORDERED: LEVO500T90 PO (12:17)
[2017-06-12] MEDS ORDERED: LORA0.5T PO (12:17)
[2017-06-12] MEDS ORDERED: ASPI81TA2 PO (12:17)
[2017-06-12] MEDS ORDERED: QUET25TA PO (12:17)
[2017-06-12] MEDS ORDERED: MAGN400O6 PO (12:17)
[2017-06-12] MEDS ORDERED: ACET-868 PO (12:17)
[2017-06-12] MEDS ORDERED: TEMA7.5C12 PO (12:17)
--- NOTE | 2017-06-12 12:25 | NUR ---
CALLED [facility] AT [phone] AND WAS NOTIFIED ABOUT THE TRANSFER.
[2017-06-12] MEDS ORDERED: ONDANSETRON HCL/PF 4 MG/2 ML VIAL IVP PRN (12:30)
[2017-06-12] MEDS ORDERED: ACETAMINOPHEN 325 MG TABLET PO PRN (12:30)
[2017-06-13 07:34] LABS: BASOPHILS # (AUTO) 0.1 /CMM (0.0-0.2); BASOPHILS % (AUTO) 4.3 % (0.0-2.0); EOSINOPHILS % (AUTO) 3.2 % (0.0-6.0); HEMATOCRIT 33 % (33-45); LYMPHOCYTES # (AUTO) 0.5 /CMM (0.8-4.8); LYMPHOCYTES % (AUTO) 40.4 % (20.0-44.0); MEAN CORPUSCULAR HEMOGLOBIN 31 PG (26.0-33.0); MEAN CORPUSCULAR HGB CONC 33 g/dl (31.0-36.0); MEAN CORPUSCULAR VOLUME 92 fL (82-100); MONOCYTES # (AUTO) 0.1 /CMM (0.1-1.30); MONOCYTES % (AUTO) 8.1 % (2.0-12.0); NEUTROPHILS # (AUTO) 0.6 /CMM (1.8-8.9); PLATELET COUNT (AUTO) 444 /CMM (150-450); RDW COEFFICIENT OF VARIATION 15.6 (11.5-15.0); RED BLOOD CELL COUNT(AUTO) 3.61 MIL/uL (4.0-5.2)
[2017-06-13 07:43] LABS: ALANINE AMINOTRANSFERASE 25 U/L (12-78); ALBUMIN 2.9 g/dL (3.4-5.0); ALKALINE PHOSPHATASE 197 U/L (46-116); ASPARTATE AMINOTRANSFERASE 32 U/L (15-37); BILIRUBIN,TOTAL 0.4 mg/dL (0.2-1.0); MAGNESIUM 1.8 mg/dL (1.8-2.4); PHOSPHORUS 3.4 mg/dL (2.5-4.9); TOTAL PROTEIN, SERUM 6.5 g/dL (6.4-8.2)
[2017-06-13 07:51] LABS: WHITE BLOOD COUNT (AUTO) 1.3 K/uL (4.3-11.0)
[2017-06-13 08:05] LABS: CALCIUM, SERUM 10.2 mg/dL (8.5-10.1); CARBON DIOXIDE 26 mmol/L (21-32); CHLORIDE 102 mmol/L (98-107); CREATININE 0.7 mg/dL (0.6-1.3); GLUCOSE 89 mg/dL (74-106); POTASSIUM 4.8 mmol/L (3.5-5.1); SODIUM SERUM 136 mmol/L (136-145); UREA NITROGEN, BLOOD 22 mg/dL (7-18)
[2017-06-13 08:54] LABS: EOSINOPHILS % (MANUAL) 3 % (0-4); LYMPHOCYTES % (MANUAL) 48 % (16-48); MONOCYTES % (MANUAL) 6 % (0-11.0); NEUTROPHILS % (MANUAL) 43 (42-76)
== END 2017-06-12 12:00 | DRG 885 ==
LOC: GPS 20:05 → MEDSG1 06-12 11:57
PROVIDERS: ADMIT Psychiatry & Neurology Psychiatry; ATTEND Psychiatry & Neurology Psychiatry
DX: F32.3 Major depressive disorder, single episode, severe with psychotic features (principal); A41.9 Sepsis, unspecified organism; J69.0 Pneumonitis due to inhalation of food and vomit; G93.41 Metabolic encephalopathy; E87.2 Acidosis; C94.6 Myelodysplastic disease, not elsewhere classified; K70.10 Alcoholic hepatitis without ascites; F03.90 Unspecified dementia, unspecified severity, without behavioral disturbance, psychotic disturbance, mood disturbance, and anxiety; F29 Unspecified psychosis not due to a substance or known physiological condition; N28.1 Cyst of kidney, acquired; R41.0 Disorientation, unspecified; D47.3 Essential (hemorrhagic) thrombocythemia; K80.20 Calculus of gallbladder without cholecystitis without obstruction; K59.00 Constipation, unspecified; I10 Essential (primary) hypertension; E78.5 Hyperlipidemia, unspecified
CPT/HCPCS: 36415; 80048-TC; 80053-TC; 80061-TC; 83735-TC; 84100-TC; 84550-TC; 85025-TC; 85610-TC; 85730-TC; 87081-TC

== ENCOUNTER 2017-06-12 12:10 | Inpatient (IN) | payer MEDICARE ==
[2017-06-12 11:30] VITALS: BP 133/77
--- NOTE | 2017-06-12 11:45 | NUR ---
RN NOTES ADMITTED 87Y/O F FROM [facility] FOR DX OF NEUTROPENIA. PT IS AWAKE ALERT ORIENTED TO NAME, NOTED WITH CONFUSION AND DISORGANIZED THOUGHTS. SITTER AT BEDSIDE. NO ACUTE DISTRESS NOTED. VS TAKEN AND RECORDED. BODY CHECK DONE NO MAJOR SKIN ISSUES NOTED. NO EPISODE OF AGGRESSIVE BEHAVIOR AT THIS TIME. PT FOR BONE MARROW BIOPSY, WILL FOLLOW UP WITH DR RILEY. ORIENTED PT TO UNIT AND CALL LIGHT USE, SAFETY MAINTAINED. CALL LIGHT WITHIN REACH, WILL CONT TO MONITOR.
[2017-06-12] MEDS ORDERED: LORA0.5T PO (12:17)
[2017-06-12] MEDS ORDERED: BUSP5TAB3 PO (12:17)
[2017-06-12] MEDS ORDERED: TEMA7.5C12 PO (12:17)
[2017-06-12] MEDS ORDERED: ACET-868 PO (12:17)
[2017-06-12] MEDS ORDERED: LEVO500T90 PO (12:17)
[2017-06-12] MEDS ORDERED: MAG30ORA PO (12:17)
[2017-06-12] MEDS ORDERED: ASPI81TA2 PO (12:17)
[2017-06-12] MEDS ORDERED: ALLO100T PO (12:17)
[2017-06-12] MEDS ORDERED: QUET25TA PO (12:17)
[2017-06-12] MEDS ORDERED: MAGN400O6 PO (12:17)
--- NOTE | 2017-06-12 13:54 | NUR ---
RN NOTES SPOKE WITH DR RILEY, PER MD SHE WILL DO BONE MARROW BIOPSY LATER TODAY OR TOMORROW.
[2017-06-12] MEDS ORDERED: MAGNESIUM HYDROXIDE 30 ML UDC PO PRN (15:00)
[2017-06-12] MEDS ORDERED: LORAZEPAM 0.5 MG TABLET PO PRN (15:00)
[2017-06-12] MEDS ORDERED: ACETAMINOPHEN 325 MG TABLET PO PRN (15:00)
[2017-06-12] MEDS ORDERED: TEMAZEPAM 7.5 MG CAPSULE PO PRN (15:00)
[2017-06-12] MEDS ORDERED: MAG HYDROX/AL HYDROX/SIMETH 30 ML UDC PO PRN (15:00)
[2017-06-12] MEDS ORDERED: HYDROCODONE/APAP 5/325MG 1 EACH TABLET PO PRN (15:00)
[2017-06-12 16:00] VITALS: BP 157/84
[2017-06-12] MEDS: QUETIAPINE FUMARATE 25 MG TABLET PO SCH (17:21)
[2017-06-12] MEDS: Z GUARD REMEDY 2 OZ OINT TP PRN (17:21)
[2017-06-12] MEDS: busPIRone 5 MG TABLET PO SCH (17:21)
[2017-06-12 20:00] VITALS: BP 99/62
[2017-06-13 04:00] VITALS: BP 130/73
[2017-06-13 07:40] LABS: CHOLESTEROL 164 mg/dL (<200); HDL CHOLESTEROL 49 mg/dL (40-60); LDL 96 mg/dL (0-99); TRIGLYCERIDES 68 mg/dL (30-150)
[2017-06-13 08:00] VITALS: BP 148/83
--- NOTE | 2017-06-13 08:01 | NUR ---
RN INITIAL NOTES PT RECEIVED FROM PM NURSE , NOTED WITH CONFUSION AND DISORGANIZED THOUGHTS. SITTER AT BEDSIDE. NO ACUTE DISTRESS NOTED AT THIS TIME .. NO EPISODE OF AGGRESSIVE BEHAVIOR AT THIS TIME. IV ACCESS AT RA GAUGE 22, NO SIGN OF REDNESS OR PAIN. CALL LIGHT WITHIN REACH. WILL CONTINUE TO MONITOR
[2017-06-13] MEDS: busPIRone 5 MG TABLET PO SCH ×2 (09:17→17:17)
[2017-06-13] MEDS: ALLOPURINOL 100 MG TABLET PO SCH (09:18)
[2017-06-13] MEDS: ASPIRIN EC 81 MG TABLET.DR PO SCH (09:18)
[2017-06-13] MEDS: QUETIAPINE FUMARATE 25 MG TABLET PO SCH ×2 (09:18→17:16)
[2017-06-13] MEDS: Z GUARD REMEDY 2 OZ OINT TP PRN (09:19)
[2017-06-13] MEDS ORDERED: LORAZEPAM INJ 2 MG/ML VIAL IV ONE (10:00)
--- NOTE | 2017-06-13 10:00 | NUR ---
RN NOTES: INFORMED DR. RILEY THAT THERE'S STILL NO CONSENT FOR SCHEDULED BONE MARROW BIOPSY TODAY. PER DR. RILEY, NO NEW CONSENT NEEDED FOR BONE MARROW BIOPSY. SHOWED OLD CONSENT IN THE CHART FOR SAME PROCEDURE (BONE MARROW BIOPSY AND ASPIRATION) THAT WAS SIGNED ON 06/08/17.
[2017-06-13] MEDS ORDERED: LIDOCAINE 1% INJ 50 ML MDV IJ ONE (10:30)
--- NOTE | 2017-06-13 10:35 | NUR ---
RN NOTES: BONE MARROW BIOPSY DONE AT BEDSIDE C/O DR. RILEY. PT TOLERATED WELL THE PROCEDURE. SPECIMEN SENT TO LAB.
[2017-06-13 10:58] LABS: BASOPHILS % (AUTO) 4.7 % (0.0-2.0); EOSINOPHILS % (AUTO) 2.9 % (0.0-6.0); HEMATOCRIT 31 % (33-45); HEMOGLOBIN 10.3 g/dL (11.5-14.8); LYMPHOCYTES # (AUTO) 0.4 /CMM (0.8-4.8); LYMPHOCYTES % (AUTO) 38.4 % (20.0-44.0); MEAN CORPUSCULAR HEMOGLOBIN 30 PG (26.0-33.0); MEAN CORPUSCULAR HGB CONC 33 g/dl (31.0-36.0); MEAN CORPUSCULAR VOLUME 92 fL (82-100); MONOCYTES # (AUTO) 0.1 /CMM (0.1-1.30); MONOCYTES % (AUTO) 10.8 % (2.0-12.0); NEUTROPHILS # (AUTO) 0.4 /CMM (1.8-8.9); NEUTROPHILS % (AUTO) 43.2 % (43.0-81.0); PLATELET COUNT (AUTO) 373 /CMM (150-450); RED BLOOD CELL COUNT(AUTO) 3.42 MIL/uL (4.0-5.2)
[2017-06-13 16:00] VITALS: BP 121/73
--- NOTE | 2017-06-13 19:00 | NUR ---
RN CLOSING NOTES NO SIGNIFICANT CHANGES NOTED W/IN SHIFT. PT TOLERATED ROOM AIR, NO SOB. PT STILL WITH A SITTER PER ORDERED. NO EPISODE OF AGGRESSIVE BEHAVIOR DURING THE SHIFT. PT STILL NOTED WITH CONFUSION AND DISORGANIZED THOUGHT. S/P BONE MARROW BIOPSY NO BLEEDING OR DISCOMFORT NOTED AT THE SITE. R HAND G22, SL, KEPT PATENT & INTACT W/ NO SIGN OF INFECTION/INFILTRATION NOTED. KEPT WELL RESTED. NEEDS ATTENDED. CALL LIGHT IS WITHIN REACH. WILL ENDORSE TO THE PM NURSE FOR SOULEYMANE.
--- NOTE | 2017-06-13 19:15 | NUR ---
RN INITIAL NOTES RECEIVED PATIENT IN BED, AWAKE AND ALERT, NOTED WITH CONFUSION AND DISORGANIZED THOUGHTS. PATIENT'S SAFETY AND COMFORT ENSURED. PROVIDED WITH REORIENTATION NEEDED. 1:1 SITTER ORDERED, PATIENT ON 5250 HOLD. PATIENT IS S/P BONE MARROW BIOPSY AND ASPIRATION IN AM, DRESSING ON L HIP INTACT, NO BLEEDING NOTED. PATIENT WITH NO SIGNS OF PAIN/DISCOMFORT. STABLE ON ROOM AIR, NO DISTRESS. R HAND G22 PIV REMAINS INTACT AND PATENT, ON SL. PATIENT'S NEEDS ANTICIPATED AND MET. SAFETY AND COMFORT ENSURED. BED IN LOW AND LOCKED POSITION. CALL LIGHT IN REACH. ON CLOSE MONITORING. NEUTROPENIC PRECAUTIONS OBSERVED AT ALL TIMES.
[2017-06-13 20:00] VITALS: BP 102/63
[2017-06-14 04:00] VITALS: BP 114/68
[2017-06-14 07:17] LABS: BASOPHILS # (AUTO) 0.1 /CMM (0.0-0.2); EOSINOPHILS % (AUTO) 3.2 % (0.0-6.0); HEMATOCRIT 34 % (33-45); HEMOGLOBIN 11.1 g/dL (11.5-14.8); LYMPHOCYTES # (AUTO) 0.6 /CMM (0.8-4.8); LYMPHOCYTES % (AUTO) 43.9 % (20.0-44.0); MEAN CORPUSCULAR HEMOGLOBIN 30 PG (26.0-33.0); MEAN CORPUSCULAR HGB CONC 33 g/dl (31.0-36.0); MEAN CORPUSCULAR VOLUME 92 fL (82-100); MONOCYTES # (AUTO) 0.2 /CMM (0.1-1.30); MONOCYTES % (AUTO) 12.2 % (2.0-12.0); NEUTROPHILS # (AUTO) 0.5 /CMM (1.8-8.9); NEUTROPHILS % (AUTO) 36.7 % (43.0-81.0); PLATELET COUNT (AUTO) 379 /CMM (150-450); RDW COEFFICIENT OF VARIATION 15.6 (11.5-15.0); RED BLOOD CELL COUNT(AUTO) 3.65 MIL/uL (4.0-5.2)
--- NOTE | 2017-06-14 07:25 | NUR ---
MS RN NOTES RECEIVED PATIENT IN BED, AWAKE AND ALERT, NOTED WITH CONFUSION AND DISORGANIZED THOUGHTS. PATIENT'S SAFETY AND COMFORT ENSURED. PROVIDED WITH E ON ROOM AIR, NO DISTRESS. R HAND G22 IV REMAINS INTACT AND PATENT, . PATIENT'S NEEDS ANTICIPATED AND MET. SAFETY AND COMFORT ENSURED. BED IN LOW AND LOCKED POSITION. CALL LIGHT IN REACH. ON CLOSE MONITORING.
[2017-06-14 07:39] LABS: ALANINE AMINOTRANSFERASE 24 U/L (12-78); ALBUMIN 2.9 g/dL (3.4-5.0); ALKALINE PHOSPHATASE 194 U/L (46-116); ASPARTATE AMINOTRANSFERASE 29 U/L (15-37); BILIRUBIN,TOTAL 0.3 mg/dL (0.2-1.0); CALCIUM, SERUM 10.3 mg/dL (8.5-10.1); CARBON DIOXIDE 28 mmol/L (21-32); CHLORIDE 106 mmol/L (98-107); CREATININE 0.7 mg/dL (0.6-1.3); GLUCOSE 86 mg/dL (74-106); POTASSIUM 4.8 mmol/L (3.5-5.1); SODIUM SERUM 139 mmol/L (136-145); TOTAL PROTEIN, SERUM 6.4 g/dL (6.4-8.2); UREA NITROGEN, BLOOD 24 mg/dL (7-18)
[2017-06-14 07:59] LABS: WHITE BLOOD COUNT (AUTO) 1.4 K/uL (4.3-11.0)
[2017-06-14 08:00] VITALS: BP 112/63
[2017-06-14] MEDS: busPIRone 5 MG TABLET PO SCH ×2 (08:21→16:18)
[2017-06-14] MEDS: QUETIAPINE FUMARATE 25 MG TABLET PO SCH ×2 (08:21→16:17)
[2017-06-14] MEDS: ASPIRIN EC 81 MG TABLET.DR PO SCH (08:21)
[2017-06-14] MEDS: ALLOPURINOL 100 MG TABLET PO SCH (08:21)
[2017-06-14 08:45] LABS: BASOPHILS % (MANUAL) 1 % (0.0-2.0); EOSINOPHILS % (MANUAL) 6 % (0-4); LYMPHOCYTES % (MANUAL) 40 % (16-48); MONOCYTES % (MANUAL) 10 % (0-11.0); NEUTROPHILS % (MANUAL) 43 (42-76)
--- NOTE | 2017-06-14 10:30 | NUR ---
MS RN NOTE DR HERNANDES PSYCHIATRIST AT BEDSIDE, NO NEW ORDER
--- NOTE | 2017-06-14 12:00 | NUR ---
MS RN NOTE DR RILEY ONCOLOGIST AWARE THAT WBC 1.4, NO NEW ORDER GIVEN AT BEDSIDE
[2017-06-14 16:00] VITALS: BP 119/77
--- NOTE | 2017-06-14 17:29 | NUR ---
MS RN NOTE STILL ON HOLD 2280 ORDERED . SITTER AT BESIDE , ALL NEEDS ATTENDED TRANSFERRED TO ROOM 103
--- NOTE | 2017-06-14 18:36 | NUR ---
MS RN NOTE ALL NEEDS ATTENDED ,NO C\O OF ANY DISCOMFORT , CALL LIGHT WITHIN REACH ,SITTER AT BEDSIDE, WILL CONT TO MONITOR CLOSELY
[2017-06-14 20:00] VITALS: BP 108/67
[2017-06-15 04:00] VITALS: BP 112/86
[2017-06-15] MEDS: ALLOPURINOL 100 MG TABLET PO SCH (08:11)
[2017-06-15] MEDS: QUETIAPINE FUMARATE 25 MG TABLET PO SCH ×2 (08:11→16:18)
[2017-06-15] MEDS: busPIRone 5 MG TABLET PO SCH ×2 (08:11→16:18)
[2017-06-15] MEDS: ASPIRIN EC 81 MG TABLET.DR PO SCH (08:11)
--- NOTE | 2017-06-15 15:44 | NUR ---
TIMBER INCISOR OPERATOR NOTE CALLED DR. ADÁN PARKER AND REPORTED PT REMOVED IV X2 DUE TO CONFUSION ABX COMPLETED AND NO ORDERED FOR IV FLUIDS. ORDERED TO DISCONTINUE IV.
[2017-06-15 16:00] VITALS: BP 105/70
--- NOTE | 2017-06-15 18:49 | NUR ---
PROMOTIONS OFFICER NOTE PT CLEAN AND DRY NO SI/HI. PT RESTING COMFORTABLY. ALL SAFETY MEASURES IN PLACE. SITTER @ BEDSIDE.
[2017-06-15 20:00] VITALS: BP 109/63
[2017-06-16 04:00] VITALS: BP 139/79
[2017-06-16 06:37] LABS: BASOPHILS % (AUTO) 2.7 % (0.0-2.0); EOSINOPHILS # (AUTO) 0.1 /CMM (0.0-0.7); EOSINOPHILS % (AUTO) 3.8 % (0.0-6.0); HEMATOCRIT 34 % (33-45); HEMOGLOBIN 11.2 g/dL (11.5-14.8); LYMPHOCYTES # (AUTO) 0.6 /CMM (0.8-4.8); MEAN CORPUSCULAR HEMOGLOBIN 31 PG (26.0-33.0); MEAN CORPUSCULAR HGB CONC 33 g/dl (31.0-36.0); MEAN CORPUSCULAR VOLUME 92 fL (82-100); MONOCYTES # (AUTO) 0.3 /CMM (0.1-1.30); MONOCYTES % (AUTO) 16.6 % (2.0-12.0); NEUTROPHILS # (AUTO) 0.7 /CMM (1.8-8.9); NEUTROPHILS % (AUTO) 42.9 % (43.0-81.0); PLATELET COUNT (AUTO) 279 /CMM (150-450); RDW COEFFICIENT OF VARIATION 15.3 (11.5-15.0); RED BLOOD CELL COUNT(AUTO) 3.64 MIL/uL (4.0-5.2)
[2017-06-16 06:43] LABS: CALCIUM, SERUM 10.5 mg/dL (8.5-10.1); CARBON DIOXIDE 28 mmol/L (21-32); CHLORIDE 107 mmol/L (98-107); CREATININE 0.6 mg/dL (0.6-1.3); GLUCOSE 92 mg/dL (74-106); MAGNESIUM 1.8 mg/dL (1.8-2.4); PHOSPHORUS 2.9 mg/dL (2.5-4.9); POTASSIUM 4.6 mmol/L (3.5-5.1); SODIUM SERUM 140 mmol/L (136-145); UREA NITROGEN, BLOOD 17 mg/dL (7-18)
--- NOTE | 2017-06-16 06:45 | NUR ---
RN CLOSING NOTES, PATIENT ALERT AND ORIENTED TO SELF, ABLE TO COMMUNICATE NEEDS AND CONCERNS , DURING LAST NIGHT SHE EXHIBITED APPROPRIATE BEHAVIOR, NO S/S OF AGITATION OR DISRUPTIVE BEHAVIOR NOTED, SITTER AT BEDSIDE, RECEIVED A CALL FROM ZAINA FROM LAB AT THIS TIME REGARDING WBC LEVEL OF 1.7 THIS MORNING, MD AWARE OF THE LOW LEVEL OF WBC THESE DAYS, WILL ENDORSE TO ACCORDINGLY TO NEXT SHIFT NURSE.
[2017-06-16 06:54] LABS: WHITE BLOOD COUNT (AUTO) 1.7 K/uL (4.3-11.0)
--- NOTE | 2017-06-16 07:15 | NUR ---
RN OPENING NOTES PT AWAKE CONFUSED SITTER AT BEDSIDE. NO IV PULLED OUT BY PT YESTERDAY--MD AWARE. REVERSE ISO LOW WBC COUNT 1.7 SECONDARY TO HYDREA WHICH IS BEING HELD BY DR. PARKER. PT ON ASA FOR HIGH PLATELETS AND THERE ARE NOTES ABOUT NUPOGEN TO BOOST WBC WHICH HAD BEEN 1.4 AND NOW 1.7. NO SKIN BREAKDOWN. BED IN LOW LOCKED POSITION. SIDE RAILS X 2. CALL LIGHT IN REACH. WILL CONT TO MONITOR.
[2017-06-16 08:00] VITALS: BP 154/82
[2017-06-16] MEDS: ALLOPURINOL 100 MG TABLET PO SCH (08:39)
[2017-06-16] MEDS: busPIRone 5 MG TABLET PO SCH ×2 (08:40→17:41)
[2017-06-16] MEDS: ASPIRIN EC 81 MG TABLET.DR PO SCH (08:40)
[2017-06-16] MEDS: QUETIAPINE FUMARATE 25 MG TABLET PO SCH ×2 (08:41→17:41)
[2017-06-16 08:49] LABS: EOSINOPHILS % (MANUAL) 5 % (0-4); LYMPHOCYTES % (MANUAL) 37 % (16-48); MONOCYTES % (MANUAL) 14 % (0-11.0); NEUTROPHILS % (MANUAL) 44 (42-76)
--- NOTE | 2017-06-16 11:09 | NUR ---
MILK POWDER GRINDER STATES PT PLAYING WITH FECES PUTTING IT ON HER OWN FACE AND HOLDING IT IN HER HAND.
--- NOTE | 2017-06-16 14:24 | NUR ---
PT. AWAKE ,NO SUICIDAL IDEATION PER DR. ANDREA WILL LET HOLD TODAY .
[2017-06-16 16:00] VITALS: BP 145/76
--- NOTE | 2017-06-16 17:30 | NUR ---
NR INITIAL NOTES, RECEIVED PATIENT IN BED, AWAKE BREATHING EVEN AND UNLABORED, NO S/S OF ANY ACUTE DISTRESS OR DISCOMFORT NOTED AT THIS TIME, NO DISRUPTIVE OR INAPPROPRIATE BEHAVIOR EXHIBIT AT THIS TIME, WILL CONTINUE TO MONITOR CLOSELY.
--- NOTE | 2017-06-16 17:51 | NUR ---
RN CLOSING NOTES 5150 REMOVED. PT HAS BEEN CALM AND COOPERATIVE. REVERSE ISOLATION PRECAUTIONS IN PLACE. CALL LIGHT IN REACH. WILL ENDORSE TO NOC RN.
[2017-06-16 20:00] VITALS: BP 119/68
[2017-06-17 04:00] VITALS: BP 103/61
--- NOTE | 2017-06-17 06:35 | NUR ---
RN CLOSING NOTES, PATIENT SLEEPING IN BED, BREATHING EVEN AND UNLABORED, NO S/S OF ANY PAIN, SOB OR ANY ACUTE DISTRESS NOTED AT THIS TIME, NO DISRUPTIVE BEHAVIOR OR AGITATION NOTED DURING THE NIGHT, BED LOCKED AND IN LOWEST POSITION, CALL LIGHT W/I REACH. WILL ENDORSE CONTINUITY OF CARE TO NEXT SHIFT NURSE.
[2017-06-17 07:10] LABS: CALCIUM, SERUM 10.4 mg/dL (8.5-10.1); CARBON DIOXIDE 30 mmol/L (21-32); CHLORIDE 102 mmol/L (98-107); CREATININE 0.6 mg/dL (0.6-1.3); GLUCOSE 83 mg/dL (74-106); MAGNESIUM 1.8 mg/dL (1.8-2.4); PHOSPHORUS 3.1 mg/dL (2.5-4.9); POTASSIUM 4.5 mmol/L (3.5-5.1); SODIUM SERUM 137 mmol/L (136-145); UREA NITROGEN, BLOOD 16 mg/dL (7-18)
[2017-06-17 07:29] LABS: BASOPHILS # (AUTO) 0.1 /CMM (0.0-0.2); BASOPHILS % (AUTO) 2.3 % (0.0-2.0); EOSINOPHILS # (AUTO) 0.1 /CMM (0.0-0.7); EOSINOPHILS % (AUTO) 3.8 % (0.0-6.0); HEMATOCRIT 33 % (33-45); HEMOGLOBIN 10.7 g/dL (11.5-14.8); LYMPHOCYTES # (AUTO) 0.8 /CMM (0.8-4.8); LYMPHOCYTES % (AUTO) 31.1 % (20.0-44.0); MEAN CORPUSCULAR HEMOGLOBIN 30 PG (26.0-33.0); MEAN CORPUSCULAR HGB CONC 33 g/dl (31.0-36.0); MEAN CORPUSCULAR VOLUME 91 fL (82-100); MONOCYTES # (AUTO) 0.4 /CMM (0.1-1.30); MONOCYTES % (AUTO) 14.1 % (2.0-12.0); NEUTROPHILS # (AUTO) 1.3 /CMM (1.8-8.9); NEUTROPHILS % (AUTO) 48.7 % (43.0-81.0); PLATELET COUNT (AUTO) 302 /CMM (150-450); RDW COEFFICIENT OF VARIATION 14.9 (11.5-15.0); RED BLOOD CELL COUNT(AUTO) 3.58 MIL/uL (4.0-5.2); WHITE BLOOD COUNT (AUTO) 2.6 K/uL (4.3-11.0)
--- NOTE | 2017-06-17 07:30 | NUR ---
CHAINSTITCH FELLED SEAM OPERATOR INITIAL NOTES RECEIVED PATIENT SLEEPING IN BED, TRANSFERRED PREVIOUSLY FROM GPS UNIT HOLD D/C YESTERDAY NO LONGER IN NEED OF SITTER, AOX1, ON ROOM AIR, NO SIGNS OF DISTRESS, IN DIAPER, BED ALARM ON, NO IV ACCESS PER MD ORDER, BED IN LOW AND LOCKED POSITION CALL LIGHT WITHIN REACH, WILL CONTINUE TO MONITOR.
[2017-06-17 08:00] VITALS: BP 145/83
[2017-06-17] MEDS: QUETIAPINE FUMARATE 25 MG TABLET PO SCH ×2 (09:26→16:25)
[2017-06-17] MEDS: ASPIRIN EC 81 MG TABLET.DR PO SCH (09:26)
[2017-06-17] MEDS: busPIRone 5 MG TABLET PO SCH ×2 (09:26→16:24)
[2017-06-17] MEDS: ALLOPURINOL 100 MG TABLET PO SCH (09:26)
[2017-06-17 10:40] LABS: EOSINOPHILS % (MANUAL) 1 % (0-4); LYMPHOCYTES % (MANUAL) 36 % (16-48); MONOCYTES % (MANUAL) 11 % (0-11.0); NEUTROPHILS % (MANUAL) 52 (42-76)
[2017-06-17 16:00] VITALS: BP 136/78
--- NOTE | 2017-06-17 18:42 | NUR ---
GRINDING MILL OPERATOR END NOTES PATIENT RESTING IN BED, NO SIGNS OF DISTRESS, ALL NEEDS ATTENDED TO, WILL ENDORSE TO DRAMATIC DIRECTOR FOR CONTINUITY OF CARE.
[2017-06-17 20:00] VITALS: BP 109/75
--- NOTE | 2017-06-17 20:00 | NUR ---
RN INITIAL NOTES, PATIENT RESTING IN BED, FAMILY AT BED SIDE, NO S/S OF ANY ACUTE DISTRESS OR DISCOMFORT NOTED AT THIS TIME, RN WILL CONTINUE TO MONITOR CLOSELY.
--- NOTE | 2017-06-17 22:00 | NUR ---
RN NOTES TORTS LAW PROFESSOR STATES THAT PT WAS SEEN PLAYING WITH FECES PUTTING IT ON HER OWN FACE AND HOLDING IT IN HER HAND.BED BATH GIVEN, CHARGE NURSE NOTIFIED AND SITTER ORDERED. RN WILL MONITOR PT.
--- NOTE | 2017-06-17 23:00 | NUR ---
RN NOTES PT REPORTED THAT SHE IS HAVING DIFFICULTY GOING TO SLEEP, SLEEP MEDICATION GIVEN. RN WILL REASSESS AND MONITOR PT.
--- NOTE | 2017-06-17 23:30 | NUR ---
RN NOTES 1:1 SITTER ORDERED FOR PT.
[2017-06-18 04:00] VITALS: BP 126/80
[2017-06-18 06:32] LABS: BASOPHILS # (AUTO) 0.1 /CMM (0.0-0.2); BASOPHILS % (AUTO) 1.8 % (0.0-2.0); EOSINOPHILS # (AUTO) 0.1 /CMM (0.0-0.7); EOSINOPHILS % (AUTO) 3.2 % (0.0-6.0); HEMATOCRIT 31 % (33-45); HEMOGLOBIN 10.1 g/dL (11.5-14.8); LYMPHOCYTES % (AUTO) 29.2 % (20.0-44.0); MEAN CORPUSCULAR HEMOGLOBIN 30 PG (26.0-33.0); MEAN CORPUSCULAR HGB CONC 33 g/dl (31.0-36.0); MEAN CORPUSCULAR VOLUME 92 fL (82-100); MONOCYTES # (AUTO) 0.4 /CMM (0.1-1.30); MONOCYTES % (AUTO) 11.7 % (2.0-12.0); NEUTROPHILS # (AUTO) 1.9 /CMM (1.8-8.9); NEUTROPHILS % (AUTO) 54.1 % (43.0-81.0); PLATELET COUNT (AUTO) 310 /CMM (150-450); RDW COEFFICIENT OF VARIATION 15.2 (11.5-15.0); RED BLOOD CELL COUNT(AUTO) 3.35 MIL/uL (4.0-5.2); WHITE BLOOD COUNT (AUTO) 3.4 K/uL (4.3-11.0)
[2017-06-18 06:49] LABS: CARBON DIOXIDE 29 mmol/L (21-32); CHLORIDE 103 mmol/L (98-107); CREATININE 0.6 mg/dL (0.6-1.3); GLUCOSE 80 mg/dL (74-106); MAGNESIUM 1.8 mg/dL (1.8-2.4); PHOSPHORUS 3.5 mg/dL (2.5-4.9); POTASSIUM 4.5 mmol/L (3.5-5.1); SODIUM SERUM 136 mmol/L (136-145); UREA NITROGEN, BLOOD 17 mg/dL (7-18)
--- NOTE | 2017-06-18 07:02 | NUR ---
RN CLOSING NOTES, PATIENT SLEEPING IN BED, BREATHING EVEN AND UNLABORED, NO S/S OF ANY PAIN, SOB OR ANY ACUTE DISTRESS NOTED AT THIS TIME, BED LOCKED AND IN LOWEST POSITION, CALL LIGHT W/I REACH. WILL ENDORSE CONTINUITY OF CARE TO NEXT SHIFT NURSE.
[2017-06-18 08:00] VITALS: BP_SYST 104; BP_SYST 94; BP_DIAS 51; BP_DIAS 59
--- NOTE | 2017-06-18 08:30 | NUR ---
opening nurses notes: Received pt in bed sleeping no acting out or behavior problems at this time, reverse isolation maintain.
[2017-06-18] MEDS: ALLOPURINOL 100 MG TABLET PO SCH (10:27)
[2017-06-18] MEDS: ASPIRIN EC 81 MG TABLET.DR PO SCH (10:27)
[2017-06-18] MEDS: QUETIAPINE FUMARATE 25 MG TABLET PO SCH (10:28)
[2017-06-18] MEDS: busPIRone 5 MG TABLET PO SCH (10:28)
--- NOTE | 2017-06-18 13:00 | NUR ---
Pt has orders to dc and will be dc to snf, v/s stable, no behavior problems at this time, complient with meds, report was called to JERRI Link, pt will be picket labor union by 1400.
--- NOTE | 2017-06-18 14:45 | NUR ---
Pt left to [facility] via ambulance, awake, alert to name, incontinence of B/B, report was given to ambuance staff paper work done by LITZY Gallagher RN.
== END 2017-06-18 14:45 | DRG 840 ==
LOC: TELE1 12:10 → MEDSG1 13:47
PROVIDERS: ADMIT Nurse Practitioner Acute Care; ATTEND Nurse Practitioner Acute Care
DX: C94.6 Myelodysplastic disease, not elsewhere classified (principal); G93.40 Encephalopathy, unspecified; D70.9 Neutropenia, unspecified; F10.96 Alcohol use, unspecified with alcohol-induced persisting amnestic disorder; G30.9 Alzheimer's disease, unspecified; F02.80 Dementia in other diseases classified elsewhere, unspecified severity, without behavioral disturbance, psychotic disturbance, mood disturbance, and anxiety; T45.1X5A Adverse effect of antineoplastic and immunosuppressive drugs, initial encounter; Y92.89 Other specified places as the place of occurrence of the external cause; Y92.129 Unspecified place in nursing home as the place of occurrence of the external cause; Y90.9 Presence of alcohol in blood, level not specified; E78.5 Hyperlipidemia, unspecified; F41.9 Anxiety disorder, unspecified; D47.3 Essential (hemorrhagic) thrombocythemia; I10 Essential (primary) hypertension
CPT/HCPCS: 36415; 80048-TC; 80053-TC; 80061-TC; 83735-TC; 84100-TC; 85025-TC; 87081-TC; A6402; J2060; J3490; Z7610

== ENCOUNTER 2017-07-28 13:59 | Inpatient (IN) | payer MEDICARE ==
[~2017-07-28] VITALS: Ht 157.5 cm; Wt 54.9 kg
[~2017-07-28 13:59] MED LIST: ACET-868 PO; ALLO100T PO; ASPI-1169 PO; BUSP5TAB3 PO; LORA0.5T PO; MAG30ORA PO; MAGN400O6 PO; QUET25TA PO; TEMA7.5C12 PO
[2017-07-28] MEDS ORDERED: LORAZEPAM INJ 2 MG/ML VIAL IV ONE (14:30)
[2017-07-28] MEDS ORDERED: IV NS 0.9% 1,000 ML BAG IV ONE (14:30)
[2017-07-28 14:38] LABS: BASOPHILS # (AUTO) 0.3 /CMM (0.0-0.2); BASOPHILS % (AUTO) 1.6 % (0.0-2.0); EOSINOPHILS # (AUTO) 0.4 /CMM (0.0-0.7); EOSINOPHILS % (AUTO) 2.2 % (0.0-6.0); HEMATOCRIT 36 % (33-45); LYMPHOCYTES # (AUTO) 1.3 /CMM (0.8-4.8); LYMPHOCYTES % (AUTO) 6.5 % (20.0-44.0); MEAN CORPUSCULAR HEMOGLOBIN 32 PG (26.0-33.0); MEAN CORPUSCULAR HGB CONC 34 g/dl (31.0-36.0); MEAN CORPUSCULAR VOLUME 94 fL (82-100); MONOCYTES # (AUTO) 1.3 /CMM (0.1-1.30); MONOCYTES % (AUTO) 6.4 % (2.0-12.0); NEUTROPHILS # (AUTO) 16.4 /CMM (1.8-8.9); NEUTROPHILS % (AUTO) 83.3 % (43.0-81.0); RDW COEFFICIENT OF VARIATION 18.3 (11.5-15.0); WHITE BLOOD COUNT (AUTO) 19.7 K/uL (4.3-11.0)
[2017-07-28] MEDS ORDERED: LORAZEPAM INJ 2 MG/ML VIAL ONE (14:43)
[2017-07-28 14:47] LABS: CALCIUM, SERUM 10.3 mg/dL (8.5-10.1); CARBON DIOXIDE 29 mmol/L (21-32); CHLORIDE 104 mmol/L (98-107); CREATININE 0.5 mg/dL (0.6-1.3); GLUCOSE 119 mg/dL (74-106); POTASSIUM 4.1 mmol/L (3.5-5.1); SODIUM SERUM 137 mmol/L (136-145); UREA NITROGEN, BLOOD 15 mg/dL (7-18)
[2017-07-28 14:50] LABS: INR 0.98 (0.87-1.13)
[2017-07-28 14:53] LABS: ALANINE AMINOTRANSFERASE 19 U/L (12-78); ALBUMIN 2.4 g/dL (3.4-5.0); ALKALINE PHOSPHATASE 205 U/L (46-116); ASPARTATE AMINOTRANSFERASE 29 U/L (15-37); BILIRUBIN,TOTAL 0.3 mg/dL (0.2-1.0); TOTAL PROTEIN, SERUM 6.7 g/dL (6.4-8.2)
[2017-07-28 15:09] LABS: PLATELET COUNT (AUTO) 2258 /CMM (150-450)
--- NOTE | 2017-07-28 15:31 | NUR ---
DR.RUTHERFORD ESTEBAN IP LITIGATION PARALEGAL
[2017-07-28] MEDS ORDERED: ASCO500T9 PO (15:41)
[2017-07-28] MEDS ORDERED: ZINC220T PO (15:41)
[2017-07-28] MEDS ORDERED: CRAN425C6 PO (15:41)
[2017-07-28] MEDS ORDERED: MULT-213 PO (15:41)
[2017-07-28] MEDS ORDERED: HYDR-552 PO (15:41)
[2017-07-28 15:43] LABS: EOSINOPHILS % (MANUAL) 3 % (0-4); LYMPHOCYTES % (MANUAL) 9 % (16-48); MONOCYTES % (MANUAL) 9 % (0-11.0); NEUTROPHILS % (MANUAL) 79 (42-76)
[2017-07-28] MEDS ORDERED: IV NS 0.9% 1,000 ML IV PRN (15:44)
[2017-07-28] MEDS ORDERED: HYDROCODONE/APAP 5/325MG 1 EACH TABLET PO PRN (16:00)
[2017-07-28] MEDS ORDERED: MAG HYDROX/AL HYDROX/SIMETH 30 ML UDC PO PRN (16:00)
[2017-07-28] MEDS ORDERED: Z GUARD REMEDY 2 OZ OINT TP PRN ×2 (16:00→18:00)
[2017-07-28] MEDS ORDERED: MAGNESIUM HYDROXIDE 30 ML UDC PO PRN (16:00)
[2017-07-28] MEDS ORDERED: ONDANSETRON HCL/PF 4 MG/2 ML VIAL IVP PRN (16:00)
[2017-07-28] MEDS ORDERED: ACETAMINOPHEN 325 MG TABLET PO PRN (16:00)
[2017-07-28] MEDS ORDERED: ZOLPIDEM TARTRATE 5 MG TABLET PO PRN (16:00)
--- NOTE | 2017-07-28 16:01 | NUR ---
TELE 114-1
--- NOTE | 2017-07-28 16:37 | NUR ---
GAVE REPORT TO LANDRY FROM [facility]
[2017-07-28 16:38] LABS: APPEARANCE,URINE Cloudy (CLEAR); BILIRUBIN,URINE Negative (NEGATIVE); BLOOD, URINE Negative Ery/uL (NEGATIVE); COLOR,URINE Yellow (YELLOW); KETONES,URINE Negative (NEGATIVE); LEUKOCYTE ESTERASE ,URINE Small (NEGATIVE); NITRITE, URINE Negative (NEGATIVE); PH,URINE 7.5 (5.0-8.0); PROTEIN,URINE 100 mg/dl (NEGATIVE); UGLUCOSE Negative (NEGATIVE)
[2017-07-28 16:43] LABS: RBC,URINE 0-2 /HPF (0-2)
[2017-07-28 16:44] LABS: BACTERIA,URINE Many /HPF (None Seen); SQUAMOUS EPITHELIAL CELL,UR Few /HPF (None Seen)
[2017-07-28] MEDS ORDERED: ENOXAPARIN SODIUM 30 MG/0.3 ML DISP.SYRIN SQ SCH (17:00)
[2017-07-28 17:15] VITALS: BP 137/88
--- NOTE | 2017-07-28 17:15 | NUR ---
RN INITIAL NOTE RECEIVED PATIENT VIA GURNEY FROM ER. PT PULLING LINES AND AGITATED WHEN CLEANING PATIENT. PT STABLE V/S TAKEN. WILL CALL DR. ISSA FOR ORDER FOR BILATERAL RESTRAINTS FOR PATIENT SAFETY.
[2017-07-28] MEDS ORDERED: ALLOPURINOL 100 MG TABLET PO SCH (18:00)
[2017-07-28] MEDS ORDERED: HYDROXYUREA 500 MG CAPSULE PO SCH (18:00)
--- NOTE | 2017-07-28 19:11 | NUR ---
RN NOTE SPOKE TO DR. RILEY HOLDING ANTICOAGULANT UNTIL CT RESULTS ARE DONE. NOT ADMINISTERING PO MEDICATION PATIENT LETHARGIC AND CONFUSED ASPIRATION PRECAUTION
--- NOTE | 2017-07-28 19:48 | NUR ---
RN OPENING NOTE RECEIVED PATIENT IN THE BED , LETHARGIC, CONFUSED, DISORIENTED, CAME BACK FROM HEAD CT SCAN, CT SCAN RESULTED, IMMIDIATELLY NOTIFIED DR ISSA, AND DR RILEY, NEW ORDERS GIVEN AND CARRIED OUT, ASPIRATION PRECAUTIONS, PLATELETS COUNT [id number], BLEEDING PRECAUTIONS TAKEN. WILL CONTINUE TO MONITOR PATIENT
[2017-07-28 20:00] VITALS: BP 174/82
[2017-07-28] MEDS ORDERED: CEFTRIAXONE 1 G in IV D5W 50 ML IV SCH (20:00)
[2017-07-28 20:29] VITALS: BP 177/82
--- NOTE | 2017-07-28 20:30 | NUR ---
RN NOTE ADÁN PARKER IS BY BED SIDE, EVALUATED PATIENT, SPOKE TO DOCTOR MAEGAN, TRANSFER TO [facility] ICU DEPARTMENT WAS GIVEN, PATIENT WILL BE GOING TO ROOM 4524 (1) PROVIDED REPORT TO [facility], TALKED TO [facility] ICU NURSE, ALL PAPERWORK PREPARED, ARCHITECTURAL DRAFTSPERSON IS AWARE, CHARGE NURSE IS AWARE, PATIENT WILL BE UNDER CARE OF DOCTOR EDUARD IN THE [facility], CALLED [facility] TO GET NUMBER FOR FAMILIES MEMBER, [facility] DOES NOT HAVE NUMBERS, TRANSPORTATION IS ARRANGED.
[2017-07-28] MEDS ORDERED: DEXAMETHASONE SOD PHOSPHATE 4 MG/ML VIAL ONE (21:12)
[2017-07-28] MEDS ORDERED: DEXAMETHASONE 4 MG TABLET PO SCH (21:30)
--- NOTE | 2017-07-28 22:00 | NUR ---
RN NOTE PERIPHERAL IV FROM LEFT HAND WAS REMOVED, INFILTRATED, NO S/S OF INFECTION MIDLINE WAS INSERTED TO LEFT UPPER ARM, GOOD BLODD RETURN,
--- NOTE | 2017-07-28 23:19 | NUR ---
RN NOTE PATIENT WAS PICKED UP BY [facility], PATIENT IS STILL LETHARGIC, AROUSABLE TO TOUCH, LEFT UPPER MIDLINE, NO ACUTE DISTRESS NOTED, WILL BE GOING TO [facility] ICU DUE ABNORMAL CT OF THE HEAD, SUBDURAL HEMATOMA, POSSIBLE BLEEDING, DR ISSA IS AWARE, TIRE FINISHER IS AWARE, ALL PAPERWORK PROVIDED
[2017-07-29] MEDS ORDERED: DEXAMETHASONE SOD PHOSPHATE 4 MG/ML VIAL IV SCH
[2017-07-29] MEDS ORDERED: PANTOPRAZOLE 40 MG TABLET.DR PO SCH (07:30)
== END 2017-07-28 23:55 | disposition short-term general hospital (02) | DRG 64 ==
LOC: ER 14:02 → TELE1 16:42
PROVIDERS: ADMIT Internal Medicine; ATTEND Internal Medicine
PROC: 05H633Z Insertion of Infusion Device into Left Subclavian Vein, Percutaneous Approach (ICD-10-PCS; principal; 2017-07-28)
PROC: B547ZZA Ultrasonography of Left Subclavian Vein, Guidance (ICD-10-PCS; 2017-07-28)
DX: I62.01 Nontraumatic acute subdural hemorrhage (principal); G92 Toxic encephalopathy; E87.2 Acidosis; N28.1 Cyst of kidney, acquired; C94.6 Myelodysplastic disease, not elsewhere classified; N39.0 Urinary tract infection, site not specified; F03.90 Unspecified dementia, unspecified severity, without behavioral disturbance, psychotic disturbance, mood disturbance, and anxiety; K70.10 Alcoholic hepatitis without ascites; E78.5 Hyperlipidemia, unspecified; D47.3 Essential (hemorrhagic) thrombocythemia; F29 Unspecified psychosis not due to a substance or known physiological condition; F10.10 Alcohol abuse, uncomplicated; Y90.9 Presence of alcohol in blood, level not specified; F41.9 Anxiety disorder, unspecified; I10 Essential (primary) hypertension; K21.9 Gastro-esophageal reflux disease without esophagitis; M19.90 Unspecified osteoarthritis, unspecified site; Z79.82 Long term (current) use of aspirin; Z79.899 Other long term (current) drug therapy; M10.9 Gout, unspecified; F10.129 Alcohol abuse with intoxication, unspecified; F32.9 Major depressive disorder, single episode, unspecified
CPT/HCPCS: 36415; 70450-TC; 71045-TC; 80048-TC; 80076-TC; 81000-TC; 82140-TC; 83605-TC; 85025-TC; 85730-TC; 87040-TC; 87081-TC; 87086-TC; A4606; J0696; J1100; J2060; J7030; J7060; Z7610